=== PATIENT | female | born 1950 | race Caucasian/White ===

== ENCOUNTER 2023-08-05 11:30 | Outpatient (RCR) | payer MEDICARE, BC, SELFPAY ==
--- NOTE | 2023-07-01 14:08 | HP.PTEVAL_ITS ---
Patient's Visit Information Visit Information Visit Information: SHANNON GOLDBERG is a 73 year old F referred to Physical Therapy by Dr. Denny Roger DO with a diagnosis of CERVICAL SPINE PAIN. Date of Evaluation: 07/01/23 Physical Therapist: Mariluz Yuen PT, Cert MDT Visit Plan Frequency: 2-3x /Week Duration: 4-6 Weeks Plan: Scapular Strengthening and B Pec/UT/Levator/Scalene Stretching to help reduce stress on Cervical Spine with Daily Activities. US at 1.3 W/CM2 100% to R Neck Musculature in Sitting. Moist Heat to Neck as needed. Instruction in Proper Posture Control, Ergonomics with ADL's and Appropriate Activity Modifications. HEP Instructions. Subjective Subjective: Work/Leisure: RETIRED. LIVES WITH IN 2 STORY HOME. Present symptoms: R NECK PAIN. INTERMITTENT SHARP NECK PAINS. CRACKING IN NECK. (INTERMITTENT EMANUEL HAND NUMBNESS AND TINGLING INTERMITTLY FOR YEARS SOMETIMES AT NIGHT OR IF SHE HAS HER HAND UP BY HER FACE - GOES AWAY WHEN SHE MOVES). Present since: APR 2023 Pain Scale: Worst - 4/10 Least - 0/10 Currently: 0/10 Commenced as a result of: NO APPARENT REASON - I JUST GOT A STIFF NECK THEN IT STARTED GETTING SORE. Worse: LOOKING TO THE RIGHT AND DOWN. SITTING AND WORKING ON [employer]LE LAST NIGHT GOT SHARP PAINS ABOUT 4 TIMES IN R NECK. LIFTING WITH R ARM. STIFF IN THE MORNINGS. Better: TYLONOL. Disturbed sleep: NO Previous history/Previous treatment: UNREMARKABLE. This episode: MUSCLE RELAXER - DONE TAKING THEM NOW AND NECK PAIN IS ABOUT THE SAME. VOLTAREN GEL - WITH SOME BENEFIT. Dizziness: NO Tinnitus: NO - TICKING IN L EAR FOR ABOUT A WEEK AND DR. ROGER IS AWARE. ALSO HAD WAX IN R EAR AND COULDN'T GET IT ALL OUT. REFERRAL TO ENT - PENDING SEP 20 2022. Nausea: NO Shortness of Breath: CHRONIC Difficulty Swollowing: NO Gait: NORMAL FOR PATIENT BUT PATIENT REPORTS KNEE AND BALANCE PROBLEMS. DENIES ANY RECENT FALLS. 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 MODERATELY SEVERE DDD AT MULTIPLE LEVELS. PMH/Recent major surgery: ANXIETY AND DEPRESSION, CEREBRAL ANEURYSM REPAIR, HIATAL HERNIA, HTN, HIGH CHOLESTEROL, EMANUEL KNEE OA, VENOUS INSUFFICIENCY EMANUEL LE'S, LUMBAR SPINAL STENOSIS. Objective Objective: Sitting Posture/Standing Posture: INCREASED KYPHOSIS. FORWARD HEAD. ROUNDED SHOULDERS. NO TORTICOLLIS. Active Correction of posture: NE Other Observations: INDEP GAIT AND TRANSFERS. Sensory deficit: EMANUEL UE LIGHT TOUCH SENSATION GROSSLY INTACT AND SYMMETRICAL ROM deficit: EMANUEL UE'S WFL Motor deficit: EMANUEL UE STRENGTH GROSSLY 5/5 WITH MMT'ING EXCEPT SHLD'S 4-/5. PATIENT DENIES NECK AND SHLD PAIN WITH TESTING. 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 Reflexes: EMANUEL UE DTR'S 2/3 Dural Signs: NEGATIVE EMANUEL UE'S. Cervical Mvmt Loss: Flex: NIL Pro: NIL Ext: MOD Ret: JUHI RSB: MOD TO JUHI LSB: MIN TO MOD R Rot: MOD L Rot: MIN PATIENT C/O INCREASED R NECK PAIN WITH CERVICAL ROM TESTING INTO FLEX, R SB AND R ROT. SHE JUST REPORTS FEELING A STRETCH BUT NOT PAIN ON THE R SIDE OF HER NECK WITH L SB AND ROT TESTING. Postural strength: POOR Palpation: TENDERNESS WITH PALPATION OF R LATERAL NECK MUSCULATURE. PATIENT DENIES TENDERNESS WITH PALPATION OF UPPER THORACIC AND CERIVCAL SPINE. SHE IS A LITTLE TENDER OVER THE OCCIPUT LATERALLY ON THE RIGHT. OTHER: PATIENT REPORTS RECENT CHANGE IN BLOOD PRESSURE MEDICINE BECAUSE IT WAS HIGH. SHE REPORTS SHE HAS BEEN FEELING BETTER SINCE THE CHANGE AND ASKED TO HAVE IT TESTED TODAY. BP 136/75 TODAY IN CLINIC. TREATMENT: NEUROMUSCULAR REEDUCATION - RETRAINING OF MVMT AND POSTURE FOR SITTING, LYING AND STANDING ACTIVITIES. Balance/Special Test Scores Oswestry Neck Score: 6 Goals Goal 1:: DECREASE C/O NECK PAIN WITH ADL'S BY 50% Goal Time Frame: 4-6 Weeks Goal 2:: PATIENT WILL DEMONSTRATE NECK ROM WFL ALL PLANES WITH C/O MILD TO NO PAIN. Goal Time Frame: 4-6 Weeks Goal 3:: INCREASE EMANUEL SHLD STRENGTH TO 4/5 OR GREATER WITH MMT'ING TO EASE ADL'S. Goal Time Frame: 4-6 Weeks Goal 4:: PATIENT WILL BE INDEP WITH A HEP FOR CONTINUED IMPROVEMENT ONCE FORMAL PHYSICAL THERAPY CONCLUDES. Goal Time Frame: 4-6 Weeks Rehabilitation Potential Physical Therapy Diagnosis: R NECK PAIN. POSTURAL WEAKNESS. NECK STIFFNESS. Rehabilitation Potential: Good Anticipated Interventions Patient/Client Instruction: Educate patient on: Condition, Plan of Care and Risk Factors For the Purpose of:: To improve self management Therapeutic Exercise to Include: Strength training, Body mechanics, Postural training, Flexibilty training, Neuromotor development and Scapular Strength/Stabilization For the Purpose of:: To decrease pain, To increase ROM, To improve muscle pe rformance and motor function, To increase tolerance to activity/condition/position and To improve ability of physical actions for home/community/work/leisure Manual Therapy Techniques to Include: Soft tissue mobilization For the Purpose of:: To decrease pain, To improve nutrient delivery to tissue and To decrease soft tissue restriction Thermo therapy (hot pack): Yes Ultrasound (thermal/non thermal): Yes For the Purpose of:: To decrease pain and To improve nutrient delivery to tissue Text: Thank you for the opportunity to evaluate your patient. For Medicare and Medicare HMO plans, please review the plan of care and approve it. It will need to be FAXED BACK to us at [phone] for Medicare purposes. For Medicare only, by signing this I certify the plan of care. Please let me know if there are questions or concerns regarding this plan of care. Physician Signature: Date:
--- NOTE | 2023-08-05 11:58 | HP.PTDCSUM ---
Discharge Summary D/C summary: It has been my pleasure to treat SHANNON GOLDBERG referred by Dr. Denny Roger DO, with the diagnosis of CERVICAL SPINE PAIN for a total of 9 visit(s). Discharge Date: 08/05/23 Please see the following information for a summary of their discharge status. Subjective Subjective: PATIENT REPORTS HER PAIN IS ALMOST GONE. SHE REPORTS COMPLIANCE WITH HER HEP BUT CHUCKLES WHEN SHE SAYS SHE HAS TROUBLE DOING THE CHICKEN ONE. Pain R NECK: Pain Intensity (Out of 10): 0 Overall Improvement % Improvement: 90 Objective Objective/Function: PATIENT HAS RESPONDED REALLY WELL TO PT AND IS INDEP WITH A HEP. SHE IS APPROPRIATE FOR AND AGREEABLE TO DISCHARGE. ALL GOALS HAVE BEEN MET. Goals Goal 1:: DECREASE C/O NECK PAIN WITH ADL'S BY 50% Goal Progress: Goal Met Goal 2:: PATIENT WILL DEMONSTRATE NECK ROM WFL ALL PLANES WITH C/O MILD TO NO PAIN. Goal Progress: Goal Met Goal 3:: INCREASE EMANUEL SHLD STRENGTH TO 4/5 OR GREATER WITH MMT'ING TO EASE ADL'S. Goal Progress: Goal Met Goal 4:: PATIENT WILL BE INDEP WITH A HEP FOR CONTINUED IMPROVEMENT ONCE FORMAL PHYSICAL THERAPY CONCLUDES. Goal Progress: Goal Met Plan Plan: D/C. D/C Information d/c sentence: If there are questions or concerns regarding this patient's physical therapy, please feel free to call me at [phone]. Thank you for the referral of this patient. Sincerely, Mariluz Yuen, PT, Cert MDT Balance/Gait/Functional tests Balance/Special Test Scores Oswestry Neck Score: 1 Improvement % Improvement: 90
== END 2023-08-05 19:47 | disposition home or self-care (01) ==
LOC: PT 11:30
PROVIDERS: PCP Family Medicine; Referring Provider Family Medicine; Visit Provider Family Medicine
DX: M54.2 Cervicalgia (principal)
CPT/HCPCS: 97035; 97112; 97140; 97162; 97530

== ENCOUNTER 2024-02-16 18:05 | Observation (INO) | payer MEDICARE, BC, SELFPAY ==
[2024-02-16] VITALS (12 sets, daily range): BP systolic 115–201; BP diastolic 69–95; PULSE 72–88; RESP 16–18; TEMP 36.7–36.9; O2SAT 93–100; BMI 37.9
--- NOTE | 2024-02-16 18:23 | ED.VIS.GI ---
HPI HPI - GI History of Present Illness Chief Complaint: Abd Pain Informant: patient Abdominal Pain/Flank Pain Onset: Today Context: Gradual Onset Timing: Continuous Quality: Stabbing Location: Epigastric, RUQ, LUQ and RLQ Worsened by: Movement (Walking) Relieved by: Nothing Nausea/Vomiting/Emesis GI Symptom: Positive for Nausea; Negative for Vomiting Diarrhea/Melena/Hematochezia GI Symptom: Negative for Diarrhea, Melena or Hematochezia Associated Symptoms Associated Symptoms: Negative for Dysuria, Frequency or Hematuria Narrative Narrative: S[place] with upper abdominal pain that began today. Patient states it has gradually gotten worse throughout the day. Patient states it is constant. Patient describes it as stabbing. Patient states it is over the upper abdomen bilaterally and right lower abdomen. Patient admits to some nausea but denies any vomiting. Patient states the pain is worse with walking. Patient states nothing makes it better. Patient denies any diarrhea, melena, or hematochezia. Patient denies any dysuria, frequency, or hematuria. PFSH [facility] Medical History Hypertension Home Medications ?Medication ?Instructions ?Recorded ?Last Taken ?Type atorvastatin 20 mg tablet 20 mg PO DAILY 06/14/17 Unknown History losartan 100 1 tab PO DAILY 06/14/17 Unknown History mg-hydrochlorothiazide 25 mg tablet metoprolol succinate 200 mg 200 mg PO QHS 06/14/17 Unknown History tablet,extended release 24 hr potassium chloride 10 mEq 10 meq PO QHS 06/14/17 Unknown History tablet,extended release(part/cryst) venlafaxine 100 mg tablet 100 mg PO DAILY 06/14/17 Unknown History allopurinol 300 mg tablet mg PO 02/16/24 Unknown History ezetimibe 10 mg tablet 10 mg PO DAILY 02/16/24 Unknown History furosemide 20 mg tablet 10 mg PO 02/16/24 Unknown History hydralazine 50 mg tablet 50 mg PO BID 02/16/24 Unknown History meloxicam 7.5 mg tablet 7.5 mg PO DAILY 02/16/24 Unknown History pantoprazole 40 mg tablet,delayed 40 mg PO DAILY 02/16/24 Unknown History release Allergy/AdvReac Type Severity Reaction Status Date / Time No Known Allergies Allergy Verified 02/16/24 18:06 Surgical History no surgical history no surgical history Social History Smoking Status: Never smoker ROS ROS ED Constitutional Constitutional ED: Reports chills and subjective; Denies fever(s) Eyes Eyes: Denies blurry vision or change in vision ENT ENT ED: Denies rhinorrhea or sore throat Cardiovascular Cardiovascular: Denies chest pain or palpitations Respiratory/Chest Respiratory/Chest: Denies cough or dyspnea Gastrointestinal Gastrointestinal: Reports abdominal pain and nausea; Denies diarrhea, melena or vomiting Genitourinary Genitourinary ED: Denies dysuria or hematuria Musculoskeletal Musculoskeletal: Denies back pain or neck pain Integumentary Denies abscess or rash Neurologic Neurologic: Denies headache(s) or weakness Allergic/Immunologic Allergic/Immunologic ED: Denies mouth swelling or urticaria EXAM Physical Exam Const Vital Signs: 02/16/24 18:06 02/16/24 18:24 02/16/24 20:13 Temperature 98.3 F Temperature Source Temporal Pulse Rate 88 79 83 Respiratory Rate 16 18 18 Blood Pressure 193/86 H 154/84 H 201/94 H Blood Pressure Mean 121 107 129 Pulse Ox 98 95 95 Oxygen Delivery Method Room Air Room Air Room Air 02/16/24 20:31 02/16/24 22:04 02/16/24 22:09 Temperature Temperature Source Pulse Rate 84 Respiratory Rate 18 Blood Pressure 195/82 H 191/95 H 191/95 H Blood Pressure Mean 119 127 127 Pulse Ox 100 Oxygen Delivery Method Room Air 02/16/24 22:20 02/16/24 23:03 Temperature 98.0 F 98.0 F Temperature Source Pulse Rate 85 85 Respiratory Rate 18 18 Blood Pressure 191/82 H 191/82 H Blood Pressure Mean 118 Pulse Ox 97 97 Oxygen Delivery Method Positive well nourished and well developed General Appearance ED: well developed and NAD HEENT Reports moist mucous membranes Neck supple and no JVD Resp normal respiratory effort and clear to auscultation bilaterally Cardio regular rate and regular rhythm GI non-distended Palpation: soft and tender epigastric, RLQ, LUQ and RUQ; Negative for guarding or rebound tenderness present Neuro CN's II-XII intact bilaterally, moves all extremities and no sensory deficits noted Sensorium / Orientation: alert Motor Exam: strength 5/5 throughout Psych mental status grossly normal and thought process normal MDM MDM MDM Narrative Medical decision making narrative: Differential diagnosis includes pancreatitis, cholecystitis, cholelithiasis, peptic ulcer disease, duodenal ulcer, appendicitis, urinary tract infection, pyelonephritis, gastroenteritis, and viral illness. CBC will be obtained to assess for leukocytosis and anemia. Comprehensive metabolic profile will be obtained to assess for hepatic function, renal function, and electrolyte abnormality. Lipase will be obtained to assess for pancreatitis. Urinalysis will be obtained to assess for urinary tract infection and hematuria. Lab Data Attestation: I reviewed the patient's lab results. Lab results narrative: CBC was reviewed. There is a mild leukocytosis of 11.8. There is a mild anemia with a hemoglobin of 11.4. Platelets are normal. Comprehensive metabolic profile was reviewed. BUN was 25 and creatinine was slightly elevated at 1.74. There are no prior results for comparison. Lipase was reviewed and was normal at 21. Urinalysis was reviewed. There is no evidence of urinary tract infection or hematuria. Labs: Laboratory Results - last 24 hr 02/16/24 02/16/24 18:46 20:05 WBC 11.8 H RBC 3.67 L Hgb 11.4 L Hct 37.2 MCV 101.4 H MCH 31.1 MCHC 30.6 L RDW Std Deviation 54.0 H RDW Coeff of Giuliano 14.4 Plt Count 218 MPV 9.6 Immature Gran % (Auto) 0.300 Neut % (Auto) 77.7 H Lymph % (Auto) 13.3 L [place] % (Auto) 7.0 Eos % (Auto) 1.4 Baso % (Auto) 0.3 Absolute Neuts (auto) 9.2 H Absolute Lymphs (auto) 1.57 Nucleated RBC % 0 Sodium 140 Potassium 3.7 Chloride 105 Carbon Dioxide 27.0 Anion Gap 8 BUN 25 H Creatinine 1.74 H Estim Creat Clear Calc 29.60 Est GFR (MDRD) Af Amer 37 L Est GFR (MDRD) Non-Af 30 L BUN/Creatinine Ratio 14.4 Glucose 128 H Calcium 9.1 Total Bilirubin 0.70 AST 21 ALT 23 Alkaline Phosphatase 89 Total Protein 7.2 Albumin 3.6 Globulin 3.6 Albumin/Globulin Ratio 1.0 Lipase 21 Urine Color Yellow Urine Clarity Clear Urine pH 6.0 Ur Specific [place] 1.010 Urine Protein Negative Urine Glucose (UA) 1000 H Urine Ketones Negative Urine Occult Blood Negative Urine Nitrite Negative Urine Bilirubin Negative Urine Urobilinogen Normal Ur Leukocyte Esterase Negative Urine RBC 0 SEEN Urine WBC 0 SEEN Ur Squamous Epith Cells 0-5 SEEN Urine Bacteria 0 SEEN Urine Mucus 0 SEEN Radiography Diagnostic Testing: Clinical Impression(s) from Imaging Studies Abdomen/Pelvis CT 02/16/24 18:30 IMPRESSION: Diverticulosis of the colon. Early appendicitis is suspected in the proper clinical settings Hiatal hernia. Electronically Signed: Omari Mcallister DO at 21:03 EDT Reading Location ID and State: [facility] / [place] Tel [phone], Service support , CT scan of the abdomen pelvis was obtained. There is early appendicitis. There is diverticulosis but no evidence of diverticulitis. There is a hiatal hernia noted. This was interpreted by the radiologist and was also dependently reviewed by myself. EKG Initial EKG: Attestation: I personally reviewed and interpreted this EKG as follows: Interpretation: Sinus Rhythm (78) and No Acute Injury Pattern Comments: EKG was obtained. On my independent interpretation, it showed a normal sinus rhythm with a rate of 78. NH interval, QRS interval, and QTc intervals were all normal. Pooler was normal. There are no acute ST or T wave changes. 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 Patient was advised of her findings. On reevaluation, patient had more tenderness in the right lower abdomen just superior to McBurney's point. There is pain with movement of her right lower extremity. Patient was given a dose of Zosyn here. Case was discussed with Dr. Cooper from general surgery. He was in to evaluate the patient. He will take the patient to the operating room. Patient and family understood and were agreeable with the plan. All questions were answered. Discharge Plan Dx/Rx/DC Orders Clinical Impression: Acute appendicitis, Hypertension, Nausea Disposition Disposition: Acute Care [facility] Discharge Date/Time: 02/16/24 22:22
--- NOTE | 2024-02-16 18:30 | CT_ITS ---
STUDY: CT ABDOMEN AND PELVIS WITH CONTRAST REASON FOR EXAM: Female, 73 years old. Abdominal pain -- IV PO Contrast RADIATION DOSAGE (If Supplied By Facility): CTDIvol = ( 16.38 ) mGy, DLP = ( 1068.97 ) mGycm TECHNIQUE: Transaxial images were obtained from the dome of the diaphragm to the symphysis pubis without oral contrast. Oral and amp; IV Gastrografin and amp; 100mL Isovue-300 was administered. Sagittal and coronal images were reconstructed. Individualized dose optimization techniques were used for this CT. COMPARISON: None. FINDINGS: The visualized lung bases are unremarkable. The visualized portions of the heart are within normal limits. Normal liver. Normal gallbladder and extrahepatic biliary system. Normal spleen. Normal pancreas. Normal bilateral adrenal glands. Normal right kidney. Normal left kidney. Small hiatal hernia. Normal small intestine. Diverticulosis of the colon. The appendix is fluid distended with an appendicolith. Mild adjacent mesenteric stranding. Early appendicitis is suspected in the proper clinical settings. Normal abdominal aorta. Normal inferior vena cava. Normal retroperitoneum. Normal urinary bladder. Normal abdominal wall. Normal osseous structures. CT/Abdomen/Pelvis WITH Contrast IMPRESSION: Diverticulosis of the colon. Early appendicitis is suspected in the proper clinical settings Hiatal hernia. Electronically Signed: Omari Mcallister DO at 21:03 EDT Reading Location ID and State: [facility] / [place] Tel [phone], Service support ,
--- NOTE | 2024-02-16 18:31 | EKG12_ITS ---
Test Reason : DYSRHYTHMIA Blood Pressure : / mmHG Vent. Rate : 078 BPM Atrial Rate : 078 BPM P-R Int : 168 ms QRS Dur : 074 ms QT Int : 368 ms P-R-T Axes : 032 020 037 degrees QTc Int : 419 ms Normal sinus rhythm Normal ECG Confirmed by Kel Guerra ([id number]), editor greeting card PRIMO TOLENTINO ([id number]) on 02/20/2024 9:00:57 AM Referred By: Confirmed By:Kel Guerra
[2024-02-16] MEDS: 0.9% Normal Saline (1000mL) 1,000 ML 999 ML IV (18:46)
[2024-02-16] MEDS: Ondansetron 4 MG/2 ML Vial IV (18:47)
[2024-02-16] MEDS: Morphine 4 MG/ML Syringe IV (18:47)
[2024-02-16 19:01] LABS: Absolute Lymphocyte Count 1.57 X10^3/uL (0.83-4.51); Absolute Neutrophil Count 9.2 X10^3/uL (2.0-7.7); Basophil# 0.03 X10^3/uL; Basophil% 0.3 % (0-1); Eosinophil# 0.16 X10^3/uL; Eosinophils% 1.4 % (0-5); Hematocrit 37.2 % (37-47); Hemoglobin 11.4 g/dL (12.0-15.0); Lymphocyte # 1.57 X10^3/ul (0.83-4.51); Lymphocyte % 13.3 % (19-41); Mean Corp Hgb Conc 30.6 g/dL (32-36); Mean Corpuscular Hgb 31.1 pg (27.0-32.0); Mean Corpuscular Volume 101.4 fL (81-99); Mean Platelet Vol. 9.6 fl (6.2-12.0); Monocyte# 0.82 X10^3/uL; NRBC Flagged by Analyzer 0 % (0-5); Neutrophil # 9.15 X10^3/uL (2.7-7.7); Neutrophil % 77.7 % (47-70); Platelet Count 218 K/mm3 (150-450); RBC Distribution Width CV 14.4 % (11.6-14.6); Red Blood Count 3.67 M/mm3 (4.2-5.4); White Blood Count 11.8 K/mm3 (4.4-11.0)
[2024-02-16 19:10] LABS: AST(SGOT) 21 U/L (15-37); Alanine Aminotransfer ALT/SGPT 23 U/L (13-56); Albumin, Serum 3.6 g/dL (3.2-5.0); Alkaline Phosphatase 89 U/L (45-117); Anion Gap 8 (5-15); BUN 25 mg/dL (7-18); BUN/Creat Ratio 14.4 RATIO (10-20); Calcium,Total 9.1 mg/dL (8.5-10.1); Chloride 105 mmol/L (98-107); Creatinine, Serum 1.74 mg/dL (0.55-1.02); EST Glomerular Filtration Rate 30 mL/min (>60); Est Glom Filt Rate - Afr Amer 37 mL/min (>60); Globulin 3.6 g/dL (2.2-4.2); Glucose 128 mg/dL (74-106); Lipase 21 U/L (13-75); Potassium 3.7 mmol/L (3.5-5.1); Protein, Total 7.2 g/dL (6.4-8.2); Sodium Level 140 mmol/L (136-145)
[2024-02-16 20:15] LABS: Bacteria 0 SEEN /hpf (None Seen); Mucous, Urine 0 SEEN /hpf (<or=2+); Red Blood Cells-Urine 0 SEEN /hpf (0-5); White Blood Cells 0 SEEN /hpf (0-5)
[2024-02-16 20:30] LABS: Color, Urine Yellow (Yellow); Glucose, Dipstick 1000 mg/dl (Normal); Ketone-Dipstick Negative (Negative); Leukocyte Esterase-Dipstick Negative /ul (Negative); Nitrite-Dipstick Negative (Negative); Occult Blood-Urine Negative /ul (Negative); Protein-Dipstick Negative (Negative); Urine Bilirubin Dipstick Negative (Negative); Urine Clarity Clear (Clear); Urine Urobilinogen Normal (Normal)
[2024-02-16 20:36] LABS: Squamous Epithelial Cells - UA 0-5 SEEN /hpf (5-10)
--- NOTE | 2024-02-16 22:09 | HP.PCM.SX_ITS ---
HPI - General HPI Narrative SHANNON GOLDBERG, is a 73 F who presents with abdominal pain. The patient says she felt like she was having indigestion yesterday. Today the pain moved to the right lower quadrant. She has nausea but no vomiting. Denies fevers or chills. [facility] Medical History (Updated 02/16/24 @ 22:[address] Huber Cooper MD) Hypertension Home Medications ?Medication ?Instructions ?Recorded ?Last Taken ?Type atorvastatin 20 mg tablet 20 mg PO DAILY 06/14/17 Unknown History losartan 100 1 tab PO DAILY 06/14/17 Unknown History mg-hydrochlorothiazide 25 mg tablet metoprolol succinate 200 mg 200 mg PO QHS 06/14/17 Unknown History tablet,extended release 24 hr potassium chloride 10 mEq 10 meq PO QHS 06/14/17 Unknown History tablet,extended release(part/cryst) venlafaxine 100 mg tablet 100 mg PO DAILY 06/14/17 Unknown History Allergy/AdvReac Type Severity Reaction Status Date / Time No Known Allergies Allergy Verified 02/16/24 18:06 Surgical History no surgical history Social History Smoking Status: Never smoker ROS Constitutional Constitutional: Denies anorexia, chills, fatigue or fever(s) Eyes Eyes: Denies blurry vision ENT HEENT: Denies abnormal hearing Cardiovascular Cardiovascular: Denies chest pain Respiratory/Chest Respiratory/Chest: Denies cough or dyspnea Gastrointestinal Gastrointestinal: Reports abdominal pain and nausea; Denies coffee ground emesis or vomiting Genitourinary Genitourinary: Denies difficulty urinating Musculoskeletal Musculoskeletal: Denies abnormal gait Integumentary Integumentary: Denies jaundice or new lesions Neurologic Neurologic: Denies abnormal gait Psychiatric Psychiatric: Denies anxiety Endocrine Endocrinology: Denies heat intolerance Vital Signs Vital Signs Vital Signs: 02/16/24 18:06 02/16/24 18:24 02/16/24 20:13 Temperature 98.3 F Temperature Source Temporal Pulse Rate 88 79 83 Respiratory Rate 16 18 18 Blood Pressure 193/86 H 154/84 H 201/94 H Blood Pressure Mean 121 107 129 Pulse Ox 98 95 95 Oxygen Delivery Method Room Air Room Air Room Air 02/16/24 20:31 02/16/24 22:04 Temperature Temperature Source Pulse Rate 84 Respiratory Rate 18 Blood Pressure 195/82 H 191/95 H Blood Pressure Mean 119 127 Pulse Ox 100 Oxygen Delivery Method Room Air Weight Weight: 200 lb 13.458 oz Body Mass Index (BMI) 37.9 Physical Exam Const oriented x3 and no apparent distress Resp normal respiratory effort Cardio regular rate and regular rhythm GI soft to palpation Palpation: tender RLQ Results Lab / Micro Data 02/16/24 18:46 02/16/24 18:46 Labs: Laboratory Results - last 24 hr 02/16/24 18:46: WBC 11.8 H, RBC 3.67 L, Hgb 11.4 L, Hct 37.2, MCV 101.4 H, MCH 31.1, MCHC 30.6 L, RDW Std Deviation 54.0 H, RDW Coeff of Giuliano 14.4, Plt Count 218, MPV 9.6, Immature Gran % (Auto) 0.300, Neut % (Auto) 77.7 H, Lymph % (Auto) 13.3 L, [place] % (Auto) 7.0, Eos % (Auto) 1.4, Baso % (Auto) 0.3, Absolute Neuts (auto) 9.2 H, Absolute Lymphs (auto) 1.57, Nucleated RBC % 0, Sodium 140, Potassium 3.7, Chloride 105, Carbon Dioxide 27.0, Anion Gap 8, BUN 25 H, C reatinine 1.74 H, Estim Creat Clear Calc 29.60, Est GFR (MDRD) Af Amer 37 L, Est GFR (MDRD) Non-Af 30 L, BUN/Creatinine Ratio 14.4, Glucose 128 H, Calcium 9.1, Total Bilirubin 0.70, AST 21, ALT 23, Alkaline Phosphatase 89, Total Protein 7.2, Albumin 3.6, Globulin 3.6, Albumin/Globulin Ratio 1.0, Lipase 21 02/16/24 20:05: Urine Color Yellow, Urine Clarity Clear, Urine pH 6.0, Ur Specific [place] 1.010, Urine Protein Negative, Urine Glucose (UA) 1000 H, Urine Ketones Negative, Urine Occult Blood Negative, Urine Nitrite Negative, Urine Bilirubin Negative, Urine Urobilinogen Normal, Ur Leukocyte Esterase Negative, Urine RBC 0 SEEN, Urine WBC 0 SEEN, Ur Squamous Epith Cells 0-5 SEEN, Urine Bacteria 0 SEEN, Urine Mucus 0 SEEN Imaging Radiology Impression Abdomen/Pelvis CT 02/16/24 18:30 IMPRESSION: Diverticulosis of the colon. Early appendicitis is suspected in the proper clinical settings Hiatal hernia. Electronically Signed: Omari Mcallister DO at 21:03 EDT Reading Location ID and State: [facility] / [place] Tel [phone], Service support , Assessment & Plan Assessment/Plan (1) Acute appendicitis: QUALIFIERS: Acute appendicitis type: unspecified acute appendicitis type Qualified Code(s): K35.80 - Unspecified acute appendicitis PLAN: The patient has acute appendicitis on CT scan. Her white count is elevated and her pain is in her right lower quadrant. I discussed laparoscopic appendectomy with the patient in detail. I discussed the risks including but Awender to bleeding, infection, injury other organs such as the bowel or bladder or ureter. Patient understands all the risks and is willing to proceed. She was given antibiotics in the emergency room. Huber Cooper MD Pager: [facility] [address] [place] [address], [address] [place] [address] Office:
--- NOTE | 2024-02-16 22:09 | EKG12_ITS ---
Test Reason : PRE-OP Blood Pressure : / mmHG Vent. Rate : 082 BPM Atrial Rate : 082 BPM P-R Int : 178 ms QRS Dur : 086 ms QT Int : 368 ms P-R-T Axes : 058 042 031 degrees QTc Int : 429 ms Sinus rhythm with occasional Premature ventricular complexes Otherwise normal ECG When compared with ECG of 16-FEB-2024 18:38, MANUAL COMPARISON REQUIRED, DATA IS UNCONFIRMED Confirmed by Kel Guerra ([id number]), metropolitan editor SANA QUIROZ ([id number]) on 02/21/2024 6:10:29 AM Referred By: DR AGUILAR Confirmed By:Kel Guerra
[2024-02-16] MEDS: Piperacil/Tazobactam 4.5 GM in 0.9% Normal Saline (100mL MB+) 100 ML IV (22:21)
--- NOTE | 2024-02-16 23:03 | PRE.ANES_ITS ---
ASA Classification* ASA Classification ASA Classification: 3 and E Assessment & Plan Anesthesia* Anesthesia Assessment Anesthesia Assessment: Discussed sedation and/or anesthesia options, risks, benefits, and alternatives with patient/parents/legal guardian/POA. Questions invited. The patient/parents/legal guardian/POA seems to understand and agrees to proceed with anesthesia plan. Reviewed the physical assessment, medical history, allergy history and patient home medications list prior to surgery/procedure/anesthetic and documented any changes. Performed airway and anesthesia risk assessments. 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 When Was Last Pacemaker Check QUESTION #4 FULL TEXT: You/Your Family Experience fever (hyperthermia) with Anesthesia Last Oral Intake Last Oral intake: Last Oral Intake NPO since 16:00 02/16/24 22:09 Meds taken in AM with sips of water? 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 mixer operator: PONV - cocoa powder mixer operator Female HX of Motion Sickness HX of N/V After Surgery Non-Smoker Duration of Surgery greater than 60 minutes Number of Risk Factors PONV Score Height & Weight Height & Weight: Anesthesia: Height & Weight Height 5 ft 1 in 02/16/24 22:09 Weight: 91.1 kg 02/16/24 22:09 Body Mass Index (BMI) 37.9 02/16/24 22:09 Respiratory Assessment Respiratory Assessment - cocoa powder mixer operator: Respiratory Tract Infection Hx - cocoa powder mixer operator Hx Respiratory Tract Infection No 02/16/24 22:09 STOP Sleep Apnea STOP Sleep Apnea - cocoa powder mixer operator: STOP Sleep Apnea - cocoa powder mixer operator Hx Hypertension Yes 02/16/24 22:09 Hx Sleep Apnea No 02/16/24 22:09 CPAP BIPAP Do you snore loudly (louder No 02/16/24 22:09 than talking or can be heard Do you often feel tired/ No 02/16/24 22:09 fatigued/ sleepy during daytime? Has anyone observed you stop No 02/16/24 22:09 breathing during sleep? STOP Results Negative 02/16/24 22:09 QUESTION #5 FULL TEXT : Do you snore loudly (louder than talking or can be heard through closed doors)? 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 Specify any problems Hx of Preganancy in last 3 Months Nurse Filling Out Transfusion & Questions: Date: Time: Patient unable to answer at this time (ie. confused, unrespo /Reproduction History /Reproductive History - cocoa powder mixer operator: /Reproductive Hx- cocoa powder mixer operator Hx Now No 02/16/24 22:09 Gestational Age (in weeks): EDC: Hx Hx Para Hx Section SAB No 02/16/24 22:09 Anesthesia Focused Assessment* Temperature: 98.0 F Pulse Rate: 85 Blood Pressure: 191/82 Respiratory Rate: 18 Pulse Ox: 97 Airway Assessment Mouth opens: >3 cm Mallampati Score: II Focused Labs Anesthesia Preop lab: CBC WBC 11.8 K/mm3 (4.4-11.0) H 02/16/24 18:46 RBC 3.67 M/mm3 (4.2-5.4) L 02/16/24 18:46 Hgb 11.4 g/dL (12.0-15.0) L 02/16/24 18:46 Hct 37.2 % (37-47) 02/16/24 18:46 Plt Count 218 K/mm3 (150-450) 02/16/24 18:46 CHEMISTRY Potassium 3.7 mmol/L (3.5-5.1) 02/16/24 18:46 Sodium 140 mmol/L (136-145) 02/16/24 18:46 BUN 25 mg/dL (7-18) H 02/16/24 18:46 Creatinine 1.74 mg/dL (0.55-1.02) H 02/16/24 18:46 Glucose 128 mg/dL (74-106) H 02/16/24 18:46 COAG Review of Systems (Anesthesia) ROS Narrative System reviewed and no additional complaints, except as documented. [facility] Medical History Hypertension Home Medications ?Medication ?Instructions ?Recorded ?Last Taken ?Type atorvastatin 20 mg tablet 80 mg PO DAILY 06/14/17 Unknown History losartan 100 1 tab PO DAILY 06/14/17 Unknown History mg-hydrochlorothiazide 25 mg tablet metoprolol succinate 200 mg 200 mg PO QHS 06/14/17 Unknown History tablet,extended release 24 hr potassium chloride 10 mEq 10 meq PO QHS 06/14/17 Unknown History tablet,extended release(part/cryst) venlafaxine 100 mg tablet 100 mg PO DAILY 06/14/17 Unknown History allopurinol 300 mg tablet mg PO 02/16/24 Unknown History ezetimibe 10 mg tablet 10 mg PO DAILY 02/16/24 Unknown History furosemide 20 mg tablet 10 mg PO 02/16/24 Unknown History hydralazine 50 mg tablet 50 mg PO BID 02/16/24 Unknown History meloxicam 7.5 mg tablet 7.5 mg PO DAILY 02/16/24 Unknown History pantoprazole 40 mg tablet,delayed 40 mg PO DAILY 02/16/24 Unknown History release Allergy/AdvReac Type Severity Reaction Status Date / Time No Known Allergies Allergy Verified 02/16/24 18:06 Surgical History no surgical history Social History Smoking Status: Never smoker
--- NOTE | 2024-02-16 23:20 | APP_PTH ---
PATIENT: SHANNON GOLDBERG LOC: MS3 U#:[id number] AGE/SX: 73/F ROOM: [facility]313 RE02/16/[address]: Dr. Huber Cooper MD : 1950 BED: 1 DIS: 02/17/2024 SPEC #: [id number] RECD: 02/17/24 08:09 STATUS: DONN REJeff #: [id number] HOME: 02/16/24 23:[address]: Huber Cooper DEPT: SURGICAL PATHOLOGY RECD BY: Nishi Maldonado ENTERED: 02/17/24 10:47 SP TYPE: APPENDIX OTHR DR: Dr. Denny Roger DO Tissues: Appendix, NOS Procedures: Surgery Specimen Level III HEADER OPERATION: Laparoscopic, appendectomy PRE-OP DIAGNOSIS: Acute appendicitis TISSUE SUBMITTED: Appendix MICROSCOPIC DIAGNOSIS Appendix, appendectomy: Acute appendicitis and periappendicitis. EDNA/ 02/20/2024 MICROSCOPIC DESCRIPTION Slides are reviewed. GROSS DESCRIPTION Received in fixative is one container labeled with the patient's name and designated appendix. The specimen consists of a variform appendix measuring 6.0 cm in length and 0.8 cm in average diameter. No gross perforations are evident. Serial sections reveal a patent lumen with fecal material. No mass lesion is identified. Tire Design Engineer sections are submitted in one cassette. / AM: 02/17/2024 TC:2 CPT: 16739
[2024-02-16] MEDS: Bupiv/Epi 0.25% 30 ML Vial (23:22)
--- NOTE | 2024-02-16 23:38 | OP.PCM_ITS ---
Report of Operation Date of Procedure: 02/16/24 Pre-Operative Diagnosis: Acute appendicitis Post-Operative Diagnosis: Same Surgery/Procedure Performed:: Laparoscopic appendectomy Type of Anesthesia: General/Regional Specimen's removed: Appendix Estimated Blood Loss (mL): 5 Description of Procedure: The patient was brought into the operating room and general anesthesia was induced. The left arm was tucked and the abdomen was prepped and draped in usual sterile fashion. A small midline incision was made superior to the umbilicus and deepened to the level of the fascia. The fascia was elevated and incised. The peritoneum was also elevated and incised. A finger sweep was performed and a balloon trocar was placed into the abdomen and inflated. The abdomen was insufflated to 15 mmHg and the camera was inserted and the abdomen was inspected for any injuries upon entering the abdomen. There were none. The patient was placed in Trendelenburg position and a 5 mm ports placed in the left lower quadrant and suprapubic areas under direct visualization. Next using atraumatic bowel graspers the appendix was identified. The appendix was grasped and elevated and Enseal was used to take down the mesoappendix. A stapler was used to come across the base of the appendix. The appendix was then placed in Endo Catch bag and removed through the umbilical incision. The staple line was inspected and found to be hemostatic and intact. The 2 5 mm ports are removed under direct visualization. The balloon trocar was deflated and removed and all the air was removed from the abdomen. The umbilical incision fascia was closed with an 0 Vicryl [id number] suture. The incisions were then irrigated with saline and dried. Local anesthetic was injected into the incision sites. The skin incisions were then closed with interrupted 4-0 Monocryl suture and Steri- Strips. Bandages were applied and the patient was awoken and taken to PACU in stable condition. Patient tolerated the procedure well. Admit VTE Documentation VTE Mechan Device Prophylaxis: SCD's
--- NOTE | 2024-02-16 23:51 | PCM.POSTANE2 ---
Anesthesia Postop Eval I Sum Anesthesia Postop Eval I Summary Anesthesia Postop Eval I Summary: Anesthesia Postop Eval I: Assessment Summary Airway patent Spontaneous unlabored respirations Mental status nausea Vomiting Anesthesia Postop Eval I: Fluid Summary Crystalloid volume administer (ml) Colloids volume administered ( ml) Blood Product volume administered (ml) Total IV fluid infused Anesthesia Postop Eval I: Summary Notes Anesthesia Complication Anesthesia Complication Comment: Post-operative progress note Anesthesia: Postop Eval II Evaluation Mental status: Awake Pain Level: 4 nausea: No Vomiting: No Complications Anesthesia Complication: No
--- NOTE | 2024-02-16 23:52 | PCM.POST.ANE ---
Anesthesia: Postop Eval I Current Vital Signs Temperature: 98.4 F Pulse Rate: 86 Blood Pressure: 121/77 Respiratory Rate: 17 Pulse Ox: 93 Oxygen Delivery Method: Nasal Cannula Oxygen Flow Rate (L/min): 3 Assessment Airway patent: Yes Spontaneous unlabored respirations: Yes Mental status: Awake nausea: No Vomiting: No Anesthesia Complication: No Fluid Hydration Crystalloid volume administer (ml): 500 Total IV fluid infused: 500 Progress Note Anesthesia document: Postop Eval 1 completed: Yes
[2024-02-17] VITALS (9 sets, daily range): BP systolic 122–177; BP diastolic 59–79; PULSE 62–92; RESP 16; TEMP 36.6–36.8; O2SAT 94–100; BMI 39.4
[2024-02-17] MEDS: 0.9% Normal Saline (1000mL) 1,000 ML 60 ML IV (00:25)
[2024-02-17] MEDS: hydrALAZINE 20 MG/ML Vial 10 MG IV (01:35)
[2024-02-17] MEDS: 0.9% Saline Lock 10 ML Syringe IV (01:35)
[2024-02-17] MEDS: oxyCODONE 5 MG Tablet PO (01:36)
--- NOTE | 2024-02-17 08:29 | PN.SURG_ITS ---
Subjective Subjective The patient is comfortable this morning. Objective Data Objective Data Vital Signs: Vital Signs Temp Pulse Resp BP Pulse Ox O2 Del Method O2 Flow Rate 98 F 74 16 122/59 H 98 Room Air 2 02/17/24 05:15 02/17/24 05:15 02/17/24 05:15 02/17/24 05:15 02/17/24 05:15 02/17/24 05:15 02/17/24 03:10 Oxygen Flow Rate (L/min) 2 Oxygen Delivery Method Room Air Weight: 208 lb 15.971 oz Body Mass Index (BMI) 39.4 Intake & Output: Intake and Output for Last 24 Hours 02/15/24 02/16/24 02/17/24 23:59 23:59 23:59 Intake Total 1100 / 1100 Balance 1100 / 1100 Lab / Micro Data 02/16/24 18:46 02/16/24 18:46 Labs: Laboratory Results - last 24 hr 02/16/24 18:46: WBC 11.8 H, RBC 3.67 L, Hgb 11.4 L, Hct 37.2, MCV 101.4 H, MCH 31.1, MCHC 30.6 L, RDW Std Deviation 54.0 H, RDW Coeff of Giuliano 14.4, Plt Count 218, MPV 9.6, Immature Gran % (Auto) 0.300, Neut % (Auto) 77.7 H, Lymph % (Auto) 13.3 L, [place] % (Auto) 7.0, Eos % (Auto) 1.4, Baso % (Auto) 0.3, Absolute Neuts (auto) 9.2 H, Absolute Lymphs (auto) 1.57, Nucleated RBC % 0, Sodium 140, Potassium 3.7, Chloride 105, Carbon Dioxide 27.0, Anion Gap 8, BUN 25 H, C reatinine 1.74 H, Estim Creat Clear Calc 29.60, Est GFR (MDRD) Af Amer 37 L, Est GFR (MDRD) Non-Af 30 L, BUN/Creatinine Ratio 14.4, Glucose 128 H, Calcium 9.1, Total Bilirubin 0.70, AST 21, ALT 23, Alkaline Phosphatase 89, Total Protein 7.2, Albumin 3.6, Globulin 3.6, Albumin/Globulin Ratio 1.0, Lipase 21 02/16/24 20:05: Urine Color Yellow, Urine Clarity Clear, Urine pH 6.0, Ur Specific [place] 1.010, Urine Protein Negative, Urine Glucose (UA) 1000 H, Urine Ketones Negative, Urine Occult Blood Negative, Urine Nitrite Negative, Urine Bilirubin Negative, Urine Urobilinogen Normal, Ur Leukocyte Esterase Negative, Urine RBC 0 SEEN, Urine WBC 0 SEEN, Ur Squamous Epith Cells 0-5 SEEN, Urine Bacteria 0 SEEN, Urine Mucus 0 SEEN Radiography Diagnostic Testing: Radiology Impression Abdomen/Pelvis CT 02/16/24 18:30 IMPRESSION: Diverticulosis of the colon. Early appendicitis is suspected in the proper clinical settings Hiatal hernia. Electronically Signed: Omari Mcallister DO at 21:03 EDT Reading Location ID and State: [facility] / [place] Tel [phone], Service support , Physical Exam Const oriented x3 and no apparent distress Resp normal respiratory effort Cardio regular rate and regular rhythm GI soft to palpation and non-tender Assessment & Plan Assessment/Plan (1) Acute appendicitis: QUALIFIERS: Acute appendicitis type: unspecified acute appendicitis type Qualified Code(s): K35.80 - Unspecified acute appendicitis PLAN: Patient doing well for laparoscopic appendectomy. I will discharge her home today after tolerating regular diet. Huber Cooper MD Pager: [facility] [address] [place] [address], [address] [place] [address] Office:
--- NOTE | 2024-02-17 08:31 | DCINST_ITS ---
Discharge Instructions Procedure Appendectomy Diet Discharge Diet: Light diet - advance as tolerated Activity Discharge Activity: May Not Drive (for 2-3 days or while taking narcotic pain medications.) May shower in (days): 1 Lifting Restrictions: 20 lbs for 2 weeks Dressing / Incision Call your doctor if your incision/area has: Continuous Slow Oozing, Sudden Increased Bleeding, Increased Pain/ Swelling, Increased Redness and Foul Smelling Discharge Call your doctor if you observe: Fever of 101 or Higher Suture Line Care: Avoid Pulling/Pushing and Avoid Pinching/Bending Remove Dressing in: 2 days Cleanse incision/area with: Soap & Water Additional Dressing/Incision Instructions:: Keep dressing clean and dry. Change or remove dressing in 2 days. Leave steri strips for 1 week. May protect with a gauze bandaid. Follow Up Care Please Follow Up With: Huber Cooper MD When: Please call to schedule 2 week follow up appointment. [phone] Test Results: Test results from this visit will be discussed in further detail at your follow- up appointment, if applicable. Discharge Plan Admission Admit Date/Time: 02/17/24 00:09 Attending Provider: Huber Cooper Primary Care Provider: Denny Roger Discharge Orders/Prescriptions Prescriptions: New acetaminophen 325 mg Tablet 650 mg PO Q4H PRN PRN (Reason: Pain 1-10 Or Fever) Qty: 0 0RF oxycodone 5 mg Tablet 5 - 10 mg PO Q4H PRN PRN (Reason: Pain Score 4-10) 5 Days Qty: 15 0RF Continued atorvastatin 20 MG tablet 80 mg PO DAILY metoprolol succinate 200 MG tablet 200 mg PO QHS Patient Comments: venlafaxine 100 MG tablet 100 mg PO DAILY Patient Comments: TAKE ONE TABLET BY MOUTH EVERY DAY losartan-hydrochlorothiazide 1 EACH tablet 1 tab PO DAILY Patient Comments: potassium chloride 10 MEQ tablet 10 meq PO QHS Patient Comments: allopurinol 300 mg tablet 300 mg PO DAILY hydralazine 50 mg tablet 50 mg PO BID furosemide 20 mg tablet 10 mg PO .daily am ezetimibe 10 mg tablet 10 mg PO DAILY meloxicam 7.5 mg tablet 7.5 mg PO DAILY pantoprazole 40 mg tablet,delayed release (DR/EC) 40 mg PO DAILY dapagliflozin propanediol [Farxiga] 5 mg tablet 5 mg PO DAILY losartan 100 mg tablet 100 mg PO DAILY Referrals / Follow Up: Denny Roger DO [Primary Care Provider] - Disposition Disposition (needs filled in before D/C Order can be placed): Home, Self Care
--- NOTE | 2024-02-17 09:40 | CASEMGMT ---
KATI CM into pt room, pt has discharge order in. Pt lying in bed using IS. Pt reports she is typically indep at home, does not use AD. Pt lives with and dtr and very close. Pt reports she has been up to the bathroom twice since surgery with the nurse and has pain in abdomen but feels she is safe to return home. Pt denies any homegoing needs at this time.
--- NOTE | 2024-02-17 09:58 | PHA.DC.MC.R ---
Pharmacy [facility] has performed discharge medication reconciliation and counseling for this patient. The patient's discharge medication list was reviewed for discrepancies and discrepancies were resolved. The patient was counseled on the following discharge medications and changes in medications for homegoing were reviewed. The Reason for Use, instructions for use, and potential side effects were reviewed for all new medications. The patient's questions regarding all of their medications were answered. 1. Acetaminophen 650 mg PO Q5H PRN pain 2. Oxycodone 5--10 mg Q4H PRN pain The patient was able to verbally demonstrate an understanding of their discharge medications. The patient was counselled on new medications by instructor adjunct pharmacy technician [place]. Medications at Discharge Home Medications atorvastatin 20 mg tablet 80 mg PO DAILY 06/14/17 losartan 100 mg-hydrochlorothiazide 25 mg tablet 1 tab PO DAILY 06/14/17 metoprolol succinate 200 mg tablet,extended release 24 hr 200 mg PO QHS 06/14/17 potassium chloride 10 mEq tablet,extended release(part/cryst) 10 meq PO QHS 06/14/17 venlafaxine 100 mg tablet 100 mg PO DAILY 06/14/17 allopurinol 300 mg tablet 300 mg PO DAILY 02/16/24 ezetimibe 10 mg tablet 10 mg PO DAILY 02/16/24 furosemide 20 mg tablet 10 mg PO .daily am 02/16/24 hydralazine 50 mg tablet 50 mg PO BID 02/16/24 meloxicam 7.5 mg tablet 7.5 mg PO DAILY 02/16/24 pantoprazole 40 mg tablet,delayed release 40 mg PO DAILY 02/16/24 acetaminophen 325 mg tablet 650 mg (2 x 325 mg) PO Q4H PRN PRN Pain 1-10 Or Fever #0 tabs 02/17/24 dapagliflozin propanediol 5 mg tablet (Farxiga) 5 mg PO DAILY 02/17/24 losartan 100 mg tablet 100 mg PO DAILY 02/17/24 oxycodone 5 mg tablet 5 - 10 mg (1 - 2 x 5 mg) PO Q4H PRN PRN Pain Score 4-10 5 days #15 tabs 02/17/24
[2024-02-17] MEDS: hydrALAZINE 50 MG Tablet PO (10:00)
[2024-02-17] MEDS: Pantoprazole Sodium 40 MG Tablet PO (10:01)
--- NOTE | 2024-02-17 12:22 | CHAPLAIN ---
Type of Pastoral Visit _x__ Initial Visit ___ Follow-up Visit ___ On-call Visit ___ General Patient Visit ___ Spiritual Assessment ___ Family Conference ___ Bereavement ___ Rapid Response ___ Code Blue ___ Other (describe below) Pastoral Care Referral From _x__ Patient ___ Family ___ Nurse ___ Physician ___ Jacker ___ Pie Filler ___ Other (describe below) Sacrament/Intervention _x__ Active listening ___ Anointing ___ Worship ___ Bereavement ___ Communion ___ Ann exploration ___ ___ Life review _x__ Prayer ___ Reconciliation ___ Sacrament of Sick ___ Supportive presence ___ Wedding ___ Other (describe below) Pastoral Comments patient reports on having surgery last night and feeling much better today with hopes of going home; family members are in the room; pt requests a prayer for her recovery
== END 2024-02-17 13:52 | disposition home or self-care (01) ==
LOC: ED 18:49 → SDC 22:06 → ACINP 22:07 → MS3 02-17 00:11 → SDC 02-20 13:52 → MS3 02-20 13:52
PROVIDERS: Admitting Provider Surgery; Emergency Provider Emergency Medicine; PCP Family Medicine; Visit Provider Surgery
PROC: 0DTJ4ZZ Resection of Appendix, Percutaneous Endoscopic Approach (ICD-10-PCS; CPT 44970; principal; 2024-02-16 23:00)
DX: K35.80 Unspecified acute appendicitis (principal); I10 Essential (primary) hypertension; Z79.899 Other long term (current) drug therapy
CPT/HCPCS: 44970; 00840; 74177; 80053; 81001; 83690; 85025; 88304; 93005; 94668; 96365; 96375; 99221; 99284; J7030; Q9967; A4216; C1760; G0378; J2405

== ENCOUNTER 2024-07-29 05:42 | Observation (INO) | payer MEDICARE, BC, SELFPAY ==
[2024-07-29] VITALS (14 sets, daily range): BP systolic 117–188; BP diastolic 53–96; PULSE 64–80; RESP 16–20; TEMP 36.7–37.2; O2SAT 92–98; BMI 39.1; BMI 37.5
--- NOTE | 2024-07-29 05:56 | EKG12_ITS ---
Test Reason : CP Blood Pressure : */* mmHG Vent. Rate : 76 BPM Atrial Rate : 76 BPM P-R Int : 178 ms QRS Dur : 80 ms QT Int : 380 ms P-R-T Axes : 53 42 50 degrees QTcB Int : 427 ms Sinus rhythm with occasional Premature ventricular complexes Otherwise normal ECG Confirmed by Kel Guerra ([id number]), city editor SANA QUIROZ ([id number]) on 07/30/2024 11:41:30 AM Referred By: BB Confirmed By: Kel Guerra
--- NOTE | 2024-07-29 05:57 | EDS_ITS ---
HPI History of Present Illness Chief Complaint: Chest Pain Informant: patient and family Narrative Narrative: 74-year-old female has been having proximately 30 hours or so of waxing and waning discomfort in her upper back feels like aching pressure, seems to be wo rse when she lie down at night and woke up with it worse in the morning, nonexertional nonpleuritic. No recent cough or URI symptoms, no dyspnea, nausea, vomiting, diaphoresis, arm discomfort but this morning she woke up couple hours ago with discomfort in her upper chest and neck and both shoulder areas, that felt like tightness. Therefore she went half mile away to her daughter's house and woke her up and she brought her here. No history of CAD or stents, patient states she was diagnosed with congestive heart failure remotely but it was due to fluid around the heart that was taking care of and she has not had any issues since. PE Risk Factors: Negative for Recent Travel/Surgery, Recent Immobilization, Prior DVT or PE, Cancer or OCP + Smoking + >/=35 PFSH [facility] Medical History Hypertension Home Medications ?Medication ?Instructions ?Recorded ?Last Taken ?Type atorvastatin 20 mg tablet 80 mg PO DAILY 06/14/17 Unknown History losartan 100 1 tab PO DAILY 06/14/17 Unknown History mg-hydrochlorothiazide 25 mg tablet metoprolol succinate 200 mg 200 mg PO QHS 06/14/17 Unknown History tablet,extended release 24 hr potassium chloride 10 mEq 10 meq PO QHS 06/14/17 Unknown History tablet,extended release(part/cryst) venlafaxine 100 mg tablet 100 mg PO DAILY 06/14/17 Unknown History allopurinol 300 mg tablet 300 mg PO DAILY 02/16/24 Unknown History ezetimibe 10 mg tablet 10 mg PO DAILY 02/16/24 Unknown History furosemide 20 mg tablet 10 mg PO .daily am 02/16/24 Unknown History hydralazine 50 mg tablet 50 mg PO BID 02/16/24 Unknown History meloxicam 7.5 mg tablet 7.5 mg PO DAILY 02/16/24 Unknown History pantoprazole 40 mg tablet,delayed 40 mg PO DAILY 02/16/24 Unknown History release acetaminophen 325 mg tablet 650 mg (2 x 325 mg) PO Q4H PRN PRN 02/17/24 Unknown Rx Pain 1-10 Or Fever #0 tabs dapagliflozin propanediol 5 mg 5 mg PO DAILY 02/17/24 Unknown History tablet (Farxiga) losartan 100 mg tablet 100 mg PO DAILY 02/17/24 Unknown History albuterol sulfate 90 mcg/actuation 2 puff inhalation Q4H PRN PRN 07/29/24 Unknown History aerosol inhaler wheezing fluticasone fur. 100 mcg-umeclid 1 ea inhalation DAILY 07/29/24 Unknown History 62.5 mcg-vilant 25 mcg inhalat.powder (Trelegy Ellipta) Allergy/AdvReac Type Severity Reaction Status Date / Time No Known Allergies Allergy Verified 07/29/24 05:43 Family History no significant family his Surgical History S/P appendectomy Social History Smoking Status: Never smoker ROS ROS ED Constitutional Constitutional ED: Denies chills or fever(s) Eyes Eyes: Denies change in vision or diplopia ENT ENT ED: Denies rhinorrhea or sore throat Cardiovascular Cardiovascular: Reports as per HPI, chest pain and radiating jaw, neck or arm pain; Denies palpitations Respiratory/Chest Respiratory/Chest: Denies cough or dyspnea Gastrointestinal Gastrointestinal: Denies abdominal pain, diarrhea, nausea or vomiting Genitourinary Genitourinary ED: Denies dysuria or hematuria Musculoskeletal Musculoskeletal: Reports back pain; Denies neck pain Integumentary Denies abscess or rash Neurologic Neurologic: Denies headache(s), paresthesias or weakness EXAM Physical Exam Const Vital Signs: 07/29/24 05:43 07/29/24 05:46 07/29/24 05:56 Temperature 98.7 F Temperature Source Oral Pulse Rate 76 Respiratory Rate 18 Respiratory Effort Normal Blood Pressure 188/87 H Blood Pressure Mean 120 Pulse Ox 95 Oxygen Delivery Method Room Air Room Air 07/29/24 06:55 07/29/24 06:59 Temperature 98.1 F Temperature Source Oral Pulse Rate 64 66 Respiratory Rate 16 Respiratory Effort Blood Pressure 171/80 H 169/79 H Blood Pressure Mean 109 Pulse Ox 94 Oxygen Delivery Method Room Air Positive well nourished and well developed General Appearance ED: well developed and NAD HEENT Reports moist mucous membranes normocephalic and atraumatic Eyes PERRL and EOMs intact bilaterally Neck full ROM and supple Resp normal respiratory effort and clear to auscultation bilaterally Cardio regular rate, regular rhythm and no murmurs Peripheral Pulses: radial pulses present bilateral 2+ GI non-tender and non-distended Auscultation: normoactive bowel sounds Palpation: soft Back/Spine no CVA tenderness General Back: other FROM Extremity normal to inspection General Extremety ED: Negative for edema, pulses abnormal or tenderness General Extremity: Negative for edema or pulses abnormal Neuro oriented x3, CN's II-XII intact bilaterally and no sensory deficits noted Sensorium / Orientation: awake and alert Motor Exam: strength 5/5 throughout Psych mental status grossly normal Skin no rashes or lesions noted and no wounds Heart Score History: Moderately Suspicious ECG: Normal Age: >/= 65 years Risk Factors: 1 or 2 Risk Factors Troponin: >1 - <3 Normal Limit Score: 5 MDM MDM MDM Narrative Medical decision making narrative: Differential includes esophageal etiologies, acute coronary syndrome, dissection. Symptoms are not consistent with pulmonary embolus and she has no tachycardia making that less likely. Given that her EKG is completely normal except for a single asymptomatic PVC, I am working her up for acute coronary syndrome with 2 sequential troponin measurements, in addition to giving her a GI cocktail to see if that helps in the meantime, as well as a dose of aspirin which she does not take regularly. The initial troponin returned elevated/abnormal at 90. This is nonspecific at this time, but increases the risk that this could be acute coronary syndrome. Inpatient disposition indicated for further evaluation. She states she feels a little bit better after the GI cocktail, unclear if she noticed a major difference or not but she still has discomfort in her right shoulder and going into her right arm. Nitroglycerin ordered/given. History & Record Review Discussion w/independent historian: Patient and Family Lab Data Attestation: I reviewed the patient's lab results. Labs: Laboratory Results - last 24 hr 07/29/24 06:00 WBC 10.6 RBC 3.76 L Hgb 12.1 Hct 38.4 MCV 102.1 H MCH 32.2 H MCHC 31.5 L RDW Std Deviation 54.6 H RDW Coeff of Giuliano 14.7 H Plt Count 189 MPV 9.4 Immature Gran % (Auto) 0.500 Neut % (Auto) 79.6 H Lymph % (Auto) 10.1 L Armstrong % (Auto) 6.9 Eos % (Auto) 2.5 Baso % (Auto) 0.4 Absolute Neuts (auto) 8.5 H Absolute Lymphs (auto) 1.07 Nucleated RBC % 0 Sodium 143 Potassium 4.0 Chloride 110 H Carbon Dioxide 27.0 Anion Gap 6 BUN 19 H Creatinine 1.21 H Estim Creat Clear Calc 42.65 Est GFR (MDRD) Af Amer 56 L Est GFR (MDRD) Non-Af 46 L BUN/Creatinine Ratio 15.7 Glucose 145 H Calcium 8.9 Troponin I High Sens 90 H Rhythm Strip Rhythm Strip: Sinus Rhythm Rate: 75 Ectopy: None EKG Initial EKG: Attestation: I personally reviewed and interpreted this EKG as follows: Interpretation: Sinus Rhythm and No Acute Injury Pattern Comments: Nml axis & intervals; nml EKG except for single interpolated PVC Management Discussion w/another healthcare provider: Hospitalist Discharge Plan Dx/Rx/DC Orders Clinical Impression: Unstable angina Disposition Disposition: Acute Care Hospital [facility]
[2024-07-29 06:03] LABS: Absolute Lymphocyte Count 1.07 X10^3/uL (0.83-4.51); Absolute Neutrophil Count 8.5 X10^3/uL (2.0-7.7); Basophil# 0.04 X10^3/uL; Basophil% 0.4 % (0-1); Eosinophil# 0.27 X10^3/uL; Eosinophils% 2.5 % (0-5); Hematocrit 38.4 % (37-47); Hemoglobin 12.1 g/dL (12.0-15.0); Lymphocyte # 1.07 X10^3/ul (0.83-4.51); Lymphocyte % 10.1 % (19-41); Mean Corp Hgb Conc 31.5 g/dL (32-36); Mean Corpuscular Hgb 32.2 pg (27.0-32.0); Mean Corpuscular Volume 102.1 fL (81-99); Mean Platelet Vol. 9.4 fl (6.2-12.0); Monocyte# 0.73 X10^3/uL; Monocyte% 6.9 % (0-10); NRBC Flagged by Analyzer 0 % (0-5); Neutrophil # 8.46 X10^3/uL (2.7-7.7); Neutrophil % 79.6 % (47-70); Platelet Count 189 K/mm3 (150-450); RBC Distribution Width CV 14.7 % (11.6-14.6); RBC Distribution Width SD 54.6 fl (35.1-43.9); Red Blood Count 3.76 M/mm3 (4.2-5.4); White Blood Count 10.6 K/mm3 (4.4-11.0)
[2024-07-29] MEDS: Aspirin 81 MG TAB.CHEW 162 MG PO (06:14)
[2024-07-29] MEDS: Lidocaine 2% Viscous15 ML UDC 15 ML PO (06:14)
[2024-07-29] MEDS: Mag Hydrox/Al Hydrox/Simeth 30 ML UDC PO (06:14)
[2024-07-29 06:23] LABS: Anion Gap 6 (5-15); BUN 19 mg/dL (7-18); BUN/Creat Ratio 15.7 RATIO (10-20); Calcium,Total 8.9 mg/dL (8.5-10.1); Chloride 110 mmol/L (98-107); Creatinine, Serum 1.21 mg/dL (0.55-1.02); EST Glomerular Filtration Rate 46 mL/min (>60); Est Glom Filt Rate - Afr Amer 56 mL/min (>60); Estimated Creatinine Clearance 42.65 ml/min; Glucose 145 mg/dL (74-106); Sodium Level 143 mmol/L (136-145); Troponin-I HS (w/2H Reflex) 90 pg/mL (3.0-54.0)
--- NOTE | 2024-07-29 06:27 | RAD_ITS ---
EXAM: XR CHEST, 1 VIEW CLINICAL INDICATION: chest pain TECHNIQUE: Frontal view of the chest. COMPARISON: No relevant prior studies available. FINDINGS: LUNGS AND PLEURAL SPACES: Bibasilar pulmonary densities may represent pneumonia or atelectasis. No pleural effusion or pneumothorax. HEART: The heart is borderline enlarged. MEDIASTINUM: No mediastinal or hilar mass. BONES/JOINTS: No acute abnormality. RAD/Chest 1 View (Portable) IMPRESSION: Bibasilar pulmonary densities may represent pneumonia or atelectasis. Electronically Signed: Alvarez Deluca MD at 8:51 EST ,
[2024-07-29] MEDS: Nitroglycerin SL (ED/IMG/CATH) 0.4 MG TABLET SL (06:55)
[2024-07-29] MEDS: Enoxaparin 100 MG/ML Syringe 90 MG SC (06:56)
--- NOTE | 2024-07-29 07:19 | HP.PCM.HOS_ITS ---
HPI - General General Date of Admission: 07/29/24 Date of Service: 07/29/24 Chief Complaint: chest pain HPI Narrative SHANNON GOLDBERG, is a 74 F with a PMH as outlined who presents via the ED on 07/29/2024 with a complaint of chest pain. She described it as a pain in her upper back which migrated to her upper chest, and described it as an aching pain and pressure. She denied any shortness of breath, nausea, vomiting or pain radiating to her left arm. Symptoms had been going on for 1 day. Review of systems was otherwise negative. She says she was admitted at [facility] a couple of years ago and was told she had fluid around her lungs, but denies having any pericardiocentesis. Vitals in the ED were BP of 169/79, ND of 66, RR of 16 and temp of 98.1F. She was saturating at 94% on room air. CBC showed hb of 12.1, wbc of 10.6, platelets of 189. Chemistry showed sodium of 143, potassium of 4, Cr of 1.21 and bicarb of 27. Initial troponin was 90. EKG showed some PVCs, but no acute ST changes. She is being admitted to be managed for chest pain, to rule out ACS. [facility] Medical History Hypertension Home Medications ?Medication ?Instructions ?Recorded ?Last Taken ?Type atorvastatin 20 mg tablet 80 mg PO DAILY cholesterol 06/14/17 Unknown History losartan 100 1 tab PO DAILY 06/14/17 Unknown History mg-hydrochlorothiazide 25 mg tablet metoprolol succinate 200 mg 200 mg PO QHS 06/14/17 Unknown History tablet,extended release 24 hr potassium chloride 10 mEq 10 meq PO QHS 06/14/17 Unknown History tablet,extended release(part/cryst) venlafaxine 100 mg tablet 100 mg PO DAILY 06/14/17 Unknown History allopurinol 300 mg tablet 300 mg PO DAILY 02/16/24 Unknown History ezetimibe 10 mg tablet 10 mg PO DAILY 02/16/24 Unknown History furosemide 20 mg tablet 10 mg PO .daily am diuretic 02/16/24 Unknown History hydralazine 50 mg tablet 50 mg PO BID blood pressure 02/16/24 Unknown History meloxicam 7.5 mg tablet 7.5 mg PO DAILY 02/16/24 Unknown History pantoprazole 40 mg tablet,delayed 40 mg PO DAILY 02/16/24 Unknown History release acetaminophen 325 mg tablet 650 mg (2 x 325 mg) PO Q4H PRN PRN 02/17/24 Unknown Rx Pain 1-10 Or Fever #0 tabs dapagliflozin propanediol 5 mg 5 mg PO DAILY 02/17/24 Unknown History tablet (Farxiga) losartan 100 mg tablet 100 mg PO DAILY blood pressure 02/17/24 Unknown History albuterol sulfate 90 mcg/actuation 2 puff inhalation Q4H PRN PRN 07/29/24 Unknown History aerosol inhaler wheezing fluticasone fur. 100 mcg-umeclid 1 ea inhalation DAILY 07/29/24 Unknown History 62.5 mcg-vilant 25 mcg inhalat.powder (Trelegy Ellipta) Allergy/AdvReac Type Severity Reaction Status Date / Time No Known Allergies Allergy Verified 07/29/24 05:43 Family History no significant family his Surgical History S/P appendectomy Social History Smoking Status: Never smoker ROS Constitutional Constitutional: Reports fatigue and malaise; Denies anorexia, chills, fever(s) or weakness Eyes Eyes: Denies change in vision ENT HEENT: Denies dysphagia, headache(s) or sore throat Cardiovascular Cardiovascular: Reports chest pain; Denies dyspnea on exertion, edema, lightheadedness, orthopnea or palpitations Respiratory/Chest Respiratory/Chest: Denies cough, dyspnea, productive cough, shortness of breath at rest or shortness of breath with exertion Gastrointestinal Gastrointestinal: Denies abdominal pain, diarrhea, melena, nausea or vomiting Genitourinary Genitourinary: Denies burning urination or dysuria Musculoskeletal Musculoskeletal: Denies arthralgias or back pain Neurologic Neurologic: Denies confusion, dizziness, focal weakness, headache(s) or numbness Psychiatric Psychiatric: Denies anxiety or depression Endocrine Endocrinology: Denies change in body appearance Vital Signs Vital Signs Vital Signs: 07/29/24 05:43 07/29/24 05:46 07/29/24 05:56 Temperature 98.7 F Temperature Source Oral Pulse Rate 76 Respiratory Rate 18 Respiratory Effort Normal Blood Pressure 188/87 H Blood Pressure Mean 120 Pulse Ox 95 Oxygen Delivery Method Room Air Room Air 07/29/24 06:55 07/29/24 06:59 Temperature 98.1 F Temperature Source Oral Pulse Rate 64 66 Respiratory Rate 16 Respiratory Effort Blood Pressure 171/80 H 169/79 H Blood Pressure Mean 109 Pulse Ox 94 Oxygen Delivery Method Room Air Weight Weight: 207 lb 0.225 oz Body Mass Index (BMI) 39.1 Physical Exam Const alert, oriented x3 and no apparent distress General Appearance: cooperative HEENT normocephalic, head/scalp atraumatic, hearing grossly normal bilaterally and moist oral mucous membranes Mouth: oral and palatal mucosa normal Eyes PERRL, EOMs intact bilaterally and conjunctivae normal Neck no lymphadenopathy and supple Resp normal respiratory effort, no retractions, no use of accessory muscles and clear to auscultation bilaterally Cardio regular rate, regular rhythm, S1 normal heart sound, S2 normal heart sound and no murmurs GI normal to inspection, nondistended, normoactive bowel sounds, soft to palpation and non-tender Extremity normal to inspection, full ROM and no clubbing, cyanosis or edema Neuro oriented x3, CN's II-XII intact bilaterally and moves all extremities Sensorium / Orientation: awake Motor Exam: strength 5/5 throughout Psych affect normal Results Lab / Micro Data 07/29/24 06:00 07/29/24 06:00 Labs: Laboratory Results - last 24 hr 07/29/24 06:00: WBC 10.6, RBC 3.76 L, Hgb 12.1, Hct 38.4, MCV 102.1 H, MCH 32.2 H, MCHC 31.5 L, RDW Std Deviation 54.6 H, RDW Coeff of Giuliano 14.7 H, Plt Count 189, MPV 9.4, Immature Gran % (Auto) 0.500, Neut % (Auto) 79.6 H, Lymph % (Auto) 10.1 L, Bee % (Auto) 6.9, Eos % (Auto) 2.5, Baso % (Auto) 0.4, Absolute Neuts (auto) 8.5 H, Absolute Lymphs (auto) 1.07, Nucleated RBC % 0, Sodium 143, Potassium 4.0, Chloride 110 H, Carbon Dioxide 27.0, Anion Gap 6, BUN 19 H, C reatinine 1.21 H, Estim Creat Clear Calc 42.65, Est GFR (MDRD) Af Amer 56 L, Est GFR (MDRD) Non-Af 46 L, BUN/Creatinine Ratio 15.7, Glucose 145 H, Calcium 8.9, T roponin I High Sens 90 H Rhythm Strip Rhythm Strip: Sinus Rhythm Rate: 75 Ectopy: None Assessment & Plan Assessment/Plan (1) Hypertension: (2) Chest pain: PLAN: Plan #nonstemi * admitted with a complaint of chest pain. EKG showed no acute ST changes, but showed some PVCs * initial troponin is 90. * will cycle troponins * PO aspirin and high intensity statin. Received a dose of therapeutic lovenox in the ED * consult cardiology * 2D echo ordered. * SL nitroglycerin prn * Repeat troponin trended down slightly to 82. I did discuss with Dr. Orta and radiation therapy technician on board. He recommended that patient get a 2D echo tomorrow and to order stress test as well. If echo is abnormal then patient will have a cardiac cath. Will hold off on cardiology consult for now and if need be, to consult cardiology if echo and or stress test abnormal tomorrow * * #Hypertension: on losartan and metoprolol. IV hydralazine prn #Hyperlipidemia: on atorvastatin and ezetemibe #HFrEF: on lasix, metoprolol, lisinopril and farxiga as well as hydralazine DVT prophylaxis: received a dose of therapeutic lovenox in the ED. SCDs Code status: Full code * Patient counseled extensively about different types of CODE STATUS including full code, DNR CCA and DNR CCA. Patient elects to be full code. Total [id number] time 16 minutes. Charges/Coding Visit Charges Inpatient E&M: 00286 Init Hosp L3 Procedures Hospitalists Procedures: 34249 Advncd Care Plan 30 Min
[2024-07-29 08:01] LABS: Reflex Troponin-HS? (from REC) Y
--- NOTE | 2024-07-29 08:41 | EKG12_ITS ---
Test Reason : AM EKG Blood Pressure : */* mmHG Vent. Rate : 60 BPM Atrial Rate : 60 BPM P-R Int : 166 ms QRS Dur : 84 ms QT Int : 404 ms P-R-T Axes : 19 33 43 degrees QTcB Int : 404 ms Normal sinus rhythm Normal ECG When compared with ECG of 29-Jul-2024 08:20, MANUAL COMPARISON REQUIRED DATA IS UNCONFIRMED Confirmed by Kel Guerra ([id number]), sound editor SANA QUIROZ ([id number]) on 07/30/2024 12:20:03 PM Referred By: Confirmed By: Kel Guerra
[2024-07-29 08:55] LABS: Troponin-I HS 82 pg/mL (3.0-54.0)
--- NOTE | 2024-07-29 09:46 | ECHOD_ITS ---
Reason For Study: Chest Pain Procedure This was a 2D Doppler, Color Flow transthoracic echocardiogram. Exam performed in department. Left Ventricle Normal LV size. The estimated ejection fraction is 65 %. No evidence for diastolic dysfunction. No regional wall motion abnormalities noted. Right Ventricle Normal RV size. Normal systolic function. Atria The left and right atria are normal. No doppler evidence for ASD. Mitral Valve There is no mitral valve stenosis. Trivial mitral valve insufficiency. Tricuspid Valve There is no tricuspid stenosis. Unable to estimate RV systolic pressure due to insufficient tricuspid regurgitant envelope. Trivial tricuspid valve insufficiency. Aortic Valve Trisinus/trileaflet aortic valve. There is no aortic stenosis. No aortic valve insufficiency. Pulmonic Valve There is no pulmonic valvular stenosis. No pulmonic valve insufficiency. Great Vessels Normal aortic root. Pericardium/Pleural No pericardial effusion. MMode/2D Measurements & Calculations LVIDd: 4.6 cm IVSd: 1.4 cm Ao root diam: 3.3 cm LVIDs: 2.9 cm LVPWd: 1.2 cm RVDd: 3.2 cm FS: 36.6 % LAV(MOD-bp): 58.2 ml LVAd ap4: 25.3 cm2 SV(MOD-sp4): 44.9 ml LAV(MOD-bp) Indexed: 30.9 ml/m2 LVLd ap4: 6.7 cm SI(MOD-sp4): 23.9 ml/m2 LAV(MOD-sp2): 53.6 ml EDV(MOD-sp4): 78.8 ml LAV(MOD-sp4): 61.1 ml EDV(sp4-el): 81.1 ml LVAs ap4: 15.1 cm2 LVLs ap4: 5.7 cm ESV(MOD-sp4): 33.9 ml ESV(sp4-el): 33.7 ml EF(MOD-sp4): 57.0 % EF(sp4-el): 58.4 % SV(sp4-el): 47.4 ml LA A4 area: 20.0 cm2 LA dimension(2D): 4.4 cm RA A4 area: 14.2 cm2 TAPSE: 1.6 cm Time Measurements MV dec time: 0.18 sec Doppler Measurements & Calculations MV E max duran: 72.5 cm/sec Lat Peak E' Duran: 10.8 cm/sec Med Peak E' Duran: 6.7 cm/sec MV A max duran: 70.6 cm/sec E/E' lat: 6.7 E/E' med: 10.8 MV E/A: 1.0 MV V2 max: 101.0 cm/sec MV P1/2t max duran: 102.0 cm/sec Ao V2 max: 137.9 cm/sec MV max P.1 mmHg MV P1/2t: 76.7 msec Ao max P.6 mmHg MV V2 mean: 55.5 cm/sec Ao V2 mean: 86.0 cm/sec MV mean P.5 mmHg MV dec slope: 389.6 cm/sec2 Ao mean P.5 mmHg MV V2 VTI: 31.6 cm MVA(P1/2t): 2.9 cm2 Ao V2 VTI: 28.7 cm AV (velocity ratio): 0.86 LV V1 max: 102.8 cm/sec PA V2 max: 81.7 cm/sec LV V1 max P.2 mmHg LV V1 mean P.3 mmHg LV V1 mean: 69.8 cm/sec LV V1 VTI: 24.7 cm ECHO/Echo Complete Interpretation Summary The estimated ejection fraction is 65 %. No evidence for diastolic dysfunction. Trivial mitral valve insufficiency. Ordering Physician: Ghazala Dukes Performed By: Jose Montelongo RCS
[2024-07-29] MEDS: Nitroglycerin (INPATIENT USE) 0.4 MG TAB.SUBL SL ×2 (10:29→10:38)
[2024-07-29 12:23] LABS: Troponin-I HS 74 pg/mL (3.0-54.0)
[2024-07-29] MEDS: Acetaminophen 325 MG Tablet 650 MG PO (12:38)
[2024-07-29] MEDS: Ipratropium/Albuterol Sulfate 3 ML AMPUL.NEB INHALATION ×2 (12:50→19:21)
[2024-07-29] MEDS: Budesonide Respules 0.5 MG/2 ML AMPUL.NEB. INHALATION (19:21)
[2024-07-29] MEDS: Metoprolol(XL)Succ 200 MG Tablet PO (20:39)
[2024-07-29] MEDS: hydrALAZINE 50 MG Tablet PO (20:39)
[2024-07-30] VITALS (8 sets, daily range): BP systolic 128–158; BP diastolic 54–73; PULSE 60–84; RESP 16–18; TEMP 36.2–36.7; O2SAT 92–99
--- NOTE | 2024-07-30 05:55 | EKG12_ITS ---
Test Reason : Blood Pressure : */* mmHG Vent. Rate : 67 BPM Atrial Rate : 67 BPM P-R Int : 178 ms QRS Dur : 82 ms QT Int : 402 ms P-R-T Axes : 59 46 53 degrees QTcB Int : 424 ms Sinus rhythm with marked sinus arrhythmia Otherwise normal ECG When compared with ECG of 29-Jul-2024 05:45, MANUAL COMPARISON REQUIRED DATA IS UNCONFIRMED Confirmed by Kel Guerra ([id number]), editorial cartoonist SANA QUIROZ ([id number]) on 07/30/2024 12:20:44 PM Referred By: LEXY Confirmed By: Kel Guerra
[2024-07-30 06:03] LABS: Absolute Neutrophil Count 5.7 X10^3/uL (2.0-7.7); Basophil# 0.04 X10^3/uL; Basophil% 0.5 % (0-1); Eosinophil# 0.18 X10^3/uL; Hematocrit 39.7 % (37-47); Hemoglobin 12.4 g/dL (12.0-15.0); Lymphocyte % 21.6 % (19-41); Mean Corp Hgb Conc 31.2 g/dL (32-36); Mean Corpuscular Hgb 31.2 pg (27.0-32.0); Mean Platelet Vol. 9.4 fl (6.2-12.0); Monocyte# 0.93 X10^3/uL; Monocyte% 10.6 % (0-10); NRBC Flagged by Analyzer 0 % (0-5); Neutrophil # 5.73 X10^3/uL (2.7-7.7); Platelet Count 202 K/mm3 (150-450); RBC Distribution Width CV 14.6 % (11.6-14.6); RBC Distribution Width SD 53.9 fl (35.1-43.9); Red Blood Count 3.97 M/mm3 (4.2-5.4); White Blood Count 8.8 K/mm3 (4.4-11.0)
[2024-07-30] MEDS: Losartan Potassium 100 MG Tablet PO (06:14)
[2024-07-30] MEDS: hydrALAZINE 50 MG Tablet PO (06:14)
[2024-07-30 06:28] LABS: Anion Gap 7 (5-15); BUN 16 mg/dL (7-18); BUN/Creat Ratio 15.2 RATIO (10-20); Calcium,Total 9.5 mg/dL (8.5-10.1); Chloride 110 mmol/L (98-107); Creatinine, Serum 1.05 mg/dL (0.55-1.02); EST Glomerular Filtration Rate 54 mL/min (>60); Est Glom Filt Rate - Afr Amer 66 mL/min (>60); Estimated Creatinine Clearance 48.03 ml/min; Glucose 120 mg/dL (74-106); Potassium 3.8 mmol/L (3.5-5.1); Sodium Level 141 mmol/L (136-145)
[2024-07-30] MEDS: Budesonide Respules 0.5 MG/2 ML AMPUL.NEB. INHALATION (07:11)
[2024-07-30] MEDS: Ipratropium/Albuterol Sulfate 3 ML AMPUL.NEB INHALATION ×2 (07:11→13:28)
[2024-07-30] MEDS: Furosemide 20 MG Tablet 10 MG PO (09:46)
[2024-07-30] MEDS: Pantoprazole Sodium 40 MG Tablet PO (09:46)
[2024-07-30] MEDS: Empagliflozin 10 MG Tablet PO (09:46)
[2024-07-30] MEDS: Potassium Chloride Oral Tablet 10 MEQ PO (09:46)
[2024-07-30] MEDS: Ezetimibe 10 MG Tablet PO (09:46)
[2024-07-30] MEDS: Allopurinol 300 MG Tablet PO (09:47)
[2024-07-30] MEDS: Atorvastatin Calcium 80 MG Tablet PO (09:47)
--- NOTE | 2024-07-30 12:05 | STRESSREP ---
Stress Test Report Date: 07/30/2024 Procedure: Pharmacologic stress nuclear imaging study Indications: Chest pain Consent: Per the patient Procedure: The patient underwent pharmacologic (Regadenoson) evaluation with a peak heart rate of 98 beats per minute (67%predicted maximal heart rate) and a peak blood pressure of 148/70 mmHg. The baseline ECG demonstrated normal sinus rhythm. EKG during lexiscan infusion revealed no significant ischemic changes. EKG post infusion revealed no significant ischemic changes [There were no cardiac dysrhythmias pretest, during pharmacologic infusion, or recovery]. [There was no complaint of chest discomfort during pharmacologic infusion or recovery]. The examination was discontinued secondary to completion of protocol. Impression: 1. Lexiscan stress test test is negative for Lexiscan infusion induced EKG changes of ischemia. 2. Lexiscan stress test test is negative for Lexiscan infusion induced chest pain. 3. Results of the nuclear portion of the test is as below Myocardial perfusion imaging study: Technique: The patient was injected with 14.1 millicuries of technetium 99m Cardiolite and subsequently rest SPECT Cardiolite nuclear imaging was obtained in the horizontal long, vertical long, and short axis views. The patient underwent pharmacologic [Regadenoson 0.4mg] evaluation. Please see above for details. The patient was injected with 44.6 millicuries of technetium 99m Cardiolite and subsequently stress SPECT Cardiolite nuclear imaging was obtained in the horizontal long, vertical long, and short axis views. A gated Cardiolite study at peak stress was obtained. Interpretation: Rest and stress SPECT Cardiolite nuclear imaging status post realignment, normalization, and attenuation correction demonstrate no evidence of significant ischemia or infarction. Gated images reveal no significant regional wall motion abnormalities. The reported LVEF is 63%. Impression: 1. There is no evidence of significant ischemia or infarction. 2. Estimated ejection fraction is 63%. This note was generated with [employer] software. It may contain incorrect words, spelling, and punctuation that were not noted in checking the note before signing.
--- NOTE | 2024-07-30 12:59 | PCM.PN.HOSP ---
Reason for Visit Reason for Visit: Diagnoses Essential (primary) hypertension (07/29/24) Chest pain, unspecified (07/29/24) Subjective Subjective Patient is a 74-year-old lady with multiple comorbidities admitted with chest pain was found to have elevated troponin consistent with non-STEMI admitted to monitored bed for further management Objective Data Objective Data Vital Signs: Vital Signs Temp Pulse Resp BP Pulse Ox O2 Del Method 98.1 F 60 16 144/54 H 93 Room Air 07/30/24 09:41 07/30/24 09:41 07/30/24 09:41 07/30/24 09:41 07/30/24 09:45 07/30/24 09:45 Oxygen Delivery Method Room Air Weight: 90.1 kg Body Mass Index (BMI) 37.5 Lab / Micro Data 07/30/24 05:29 07/30/24 05:29 Labs: Laboratory Results - last 24 hr 07/30/24 05:29: WBC 8.8, RBC 3.97 L, Hgb 12.4, Hct 39.7, MCV 100.0 H, MCH 31.2, MCHC 31.2 L, RDW Std Deviation 53.9 H, RDW Coeff of Giuliano 14.6, Plt Count 202, MPV 9.4, Immature Gran % (Auto) 0.300, Neut % (Auto) 65.0, Lymph % (Auto) 21.6, [place] % (Auto) 10.6 H, Eos % (Auto) 2.0, Baso % (Auto) 0.5, Absolute Neuts (auto) 5.7, Absolute Lymphs (auto) 1.90, Nucleated RBC % 0, Sodium 141, Potassium 3.8, Chloride 110 H, Carbon Dioxide 24.0, Anion Gap 7, BUN 16, Creatinine 1.05 H, Estim Creat Clear Calc 48.03, Est GFR (MDRD) Af Amer 66, Est GFR (MDRD) Non-Af 54 L, BUN/Creatinine Ratio 15.2, Glucose 120 H, Calcium 9.5 Rhythm Strip Rhythm Strip: Sinus Rhythm Rate: 75 Ectopy: None Physical Exam Narrative GENERAL: cooperative HEENT: Atraumatic; normocephalic EYES; Anicteric, Normal Conjunctiva NECK; supple, normal thyroid, RESPIRATORY: Diminished to auscultation CARDIOVASCULAR: Regular S1 S2, GI: soft, normoactive bowel sounds, : No Renal angle tenderness; EXTREMITIES: No edema, no clubbing, MUSCULOSKELETAL: no muscle wasting NEURO: Awake; no lateralizing signs. SKIN: No Rash PSYCH; Flat affect Assessment & Plan Assessment/Plan (1) Hypertension: (2) Chest pain: PLAN: Plan Patient is a 74-year-old lady with multiple comorbidities admitted with chest pain was found to have elevated troponin consistent with non-STEMI admitted to monitored bed for further management 1. Acute non-STEMI ? Patient admitted to monitored bed treatment initiated per protocol with aspirin high-dose statin as well as therapeutic Lovenox with consultation placed to cardiology. Cardiology recommended for patient to undergo a nuclear stress test 2. Hypertension ? Blood pressure controlled, home medications continued with dose adjustment as needed 3. Dyslipidemia ?Patient is on statin therapy as well as Zetia continued at home dose 4. Class II obesity with BMI of 37.5 ? Complicating care weight loss advised 5. Chronic congestive heart failure?unspecified type ? Patient is however on recommended medications including Farxiga, furosemide, metoprolol, lisinopril as well as hydralazine 6. DVT prophylaxis ? On enoxaparin
--- NOTE | 2024-07-30 14:19 | PCM.DC.SUM ---
Providers Date of Admission: 07/29/24 Date of Discharge: 07/30/24 Primary Care Physician: Dr. Denny Roger, DO Reason For Visit: CHEST PAIN Diagnosis Discharge Diagnosis (1) Hypertension: Status: Chronic Code(s): I10 - Essential (primary) hypertension (2) Chest pain: Status: Acute Code(s): R07.9 - Chest pain, unspecified Plan Patient is a 74-year-old lady with multiple comorbidities admitted with chest pain was found to have elevated troponin consistent with non-STEMI admitted to monitored bed for further management 1. Acute non-STEMI ? Patient admitted to monitored bed treatment initiated per protocol with aspirin high-dose statin as well as therapeutic Lovenox with consultation placed to cardiology. Cardiology recommended for patient to undergo a nuclear stress test ? Patient nuclear stress test 1. Lexiscan stress test test is negative for Lexiscan infusion induced EKG changes of ischemia. 2. Lexiscan stress test test is negative for Lexiscan infusion induced chest pain. 3. Results of the nuclear portion of the test is as below Myocardial perfusion imaging study: Interpretation: Rest and stress SPECT Cardiolite nuclear imaging status post realignment, normalization, and attenuation correction demonstrate no evidence of significant ischemia or infarction. Gated images reveal no significant regional wall motion abnormalities. The reported LVEF is 63%. Impression: 1. There is no evidence of significant ischemia or infarction. 2. Estimated ejection fraction is 63%. ?Patient was discharged home with optimization of medical therapy 2. Hypertension ? Blood pressure controlled, home medications continued with dose adjustment as needed 3. Dyslipidemia ?Patient is on statin therapy as well as Zetia continued at home dose 4. Class II obesity with BMI of 37.5 ? Complicating care weight loss advised 5. Chronic congestive heart failure?with preserved ejection fraction ?on recommended medications including Farxiga, furosemide, metoprolol, lisinopril as well as hydralazine 6. DVT prophylaxis ? On enoxaparin Medications at Discharge Home Medications atorvastatin 20 mg tablet 80 mg PO DAILY cholesterol 06/14/17 metoprolol succinate 200 mg tablet,extended release 24 hr 200 mg PO QHS 06/14/17 potassium chloride 10 mEq tablet,extended release(part/cryst) 10 meq PO QHS 06/14/17 venlafaxine 100 mg tablet 100 mg PO DAILY 06/14/17 allopurinol 300 mg tablet 300 mg PO DAILY 02/16/24 ezetimibe 10 mg tablet 10 mg PO DAILY 02/16/24 furosemide 20 mg tablet 10 mg PO .daily am diuretic 02/16/24 hydralazine 50 mg tablet 50 mg PO BID blood pressure 02/16/24 meloxicam 7.5 mg tablet 7.5 mg PO DAILY 02/16/24 pantoprazole 40 mg tablet,delayed release 40 mg PO DAILY 02/16/24 acetaminophen 325 mg tablet 650 mg (2 x 325 mg) PO Q4H PRN PRN Pain 1-10 Or Fever #0 tabs 02/17/24 dapagliflozin propanediol 5 mg tablet (Farxiga) 5 mg PO DAILY 02/17/24 losartan 100 mg tablet 100 mg PO DAILY blood pressure 02/17/24 albuterol sulfate 90 mcg/actuation aerosol inhaler 2 puff inhalation Q4H PRN PRN wheezing 07/29/24 fluticasone fur. 100 mcg-umeclid 62.5 mcg-vilant 25 mcg inhalat.powder (Trelegy Ellipta) 1 ea inhalation DAILY 07/29/24 aspirin 81 mg tablet,delayed release (Ecotrin Low Strength) 81 mg PO DAILY #90 tabs 07/30/24 Hospital Course Summary of Care Provided Minutes Spent on Discharge: 35 Physical Exam Narrative GENERAL: cooperative HEENT: Atraumatic; normocephalic EYES; Anicteric, Normal Conjunctiva NECK; supple, normal thyroid, RESPIRATORY: Diminished to auscultation CARDIOVASCULAR: Regular S1 S2, GI: soft, normoactive bowel sounds, : No Renal angle tenderness; EXTREMITIES: No edema, no clubbing, MUSCULOSKELETAL: no muscle wasting NEURO: Awake; no lateralizing signs. SKIN: No Rash PSYCH; Flat affect Weight / BMI Weight Weight: 90.1 kg Body Mass Index (BMI) 37.5 ABG / Lab / Microbiology Data 07/30/24 05:29 07/30/24 05:29 Laboratory: Laboratory Results - last 24 hr 07/30/24 05:29: WBC 8.8, RBC 3.97 L, Hgb 12.4, Hct 39.7, MCV 100.0 H, MCH 31.2, MCHC 31.2 L, RDW Std Deviation 53.9 H, RDW Coeff of Giuliano 14.6, Plt Count 202, MPV 9.4, Immature Gran % (Auto) 0.300, Neut % (Auto) 65.0, Lymph % (Auto) 21.6, [place] % (Auto) 10.6 H, Eos % (Auto) 2.0, Baso % (Auto) 0.5, Absolute Neuts (auto) 5.7, Absolute Lymphs (auto) 1.90, Nucleated RBC % 0, Sodium 141, Potassium 3.8, Chloride 110 H, Carbon Dioxide 24.0, Anion Gap 7, BUN 16, Creatinine 1.05 H, Estim Creat Clear Calc 48.03, Est GFR (MDRD) Af Amer 66, Est GFR (MDRD) Non-Af 54 L, BUN/Creatinine Ratio 15.2, Glucose 120 H, Calcium 9.5 Radiography Diagnostic Testing: Radiology Impression Echocardiogram 07/29/24 09:46 Interpretation Summary The estimated ejection fraction is 65 %. No evidence for diastolic dysfunction. Trivial mitral valve insufficiency. Ordering Physician: Ghazala Dukes Performed By: Jose Montelongo RCS D/C Instructions Discharge Diet: Low fat / Low cholesterol Discharge Activity: Return to Normal Activity Call your doctor if you observe: Fever of 101 or Higher, Shortness of breath, Fainting spells and Chest pain DC O2, CPAP, BIPAP Needs Additional Home O2 Discharge instructions: No DC home with Oxygen: No Meaningful Use Info Meaningful Use Meaningful Use Diagnoses (Choose all that apply): None applicable AMI/Post PCI/Angioplasty Aspirin given w/in 24hrs of arrival?: Yes ASA at discharge?: Yes Antiplatelet Therapy at Discharge:: Yes Statins at discharge?: Yes Pako/ARB at discharge?: Yes Beta Delvin at discharge?: Yes Documented LVEF (%): 63 Ischemic Stroke Statin Dosing Therapy Reference: STATIN DOSE THERAPY REFERENCE: * Patients > 75 years receive moderate or high dose statin therapy. * Patients 75 years or YOUNGER should receive HIGH intensity statin dose unless contraindicated. You will be required to document reason for non-treatment if statin daily dose does not meet guidelines. HIGH DOSE STATIN THERAPY DAILY Atorvastatin > than or = to 40 mg Rosuvastatin > than or = to 20 mg Amlodipine + Atorvastatin > than or = to 2.5/40 mg Ezetimibe + Simvastatin 10/80 mg Simvastatin 80mg Discharge Plan Admission Admit Date/Time: 07/29/24 07:31 Attending Provider: Alvarado Shipley Primary Care Provider: Denny Roger Consulting Providers: Ghazala Dukes Discharge Orders/Prescriptions Prescriptions: New aspirin [Ecotrin Low Strength] 81 mg tablet,delayed release (DR/EC) 81 mg PO DAILY Qty: 90 0RF Continued atorvastatin 20 MG tablet 80 mg PO DAILY metoprolol succinate 200 MG tablet 200 mg PO QHS Patient Comments: venlafaxine 100 MG tablet 100 mg PO DAILY Patient Comments: TAKE ONE TABLET BY MOUTH EVERY DAY potassium chloride 10 MEQ tablet 10 meq PO QHS Patient Comments: allopurinol 300 mg tablet 300 mg PO DAILY hydralazine 50 mg tablet 50 mg PO BID furosemide 20 mg tablet 10 mg PO .daily am ezetimibe 10 mg tablet 10 mg PO DAILY meloxicam 7.5 mg tablet 7.5 mg PO DAILY pantoprazole 40 mg tablet,delayed release (DR/EC) 40 mg PO DAILY dapagliflozin propanediol [Farxiga] 5 mg tablet 5 mg PO DAILY losartan 100 mg tablet 100 mg PO DAILY acetaminophen 325 mg Tablet 650 mg PO Q4H PRN PRN (Reason: Pain 1-10 Or Fever) Qty: 0 0RF albuterol sulfate 90 mcg/actuation HFA aerosol inhaler 2 puff INHALATION Q4H PRN PRN (Reason: wheezing) Trelegy Ellipta 100-62.5-25 mcg blister with device 1 ea inhalation DAILY Referrals / Follow Up: Denny Roger DO [Primary Care Provider] - Within 1 Week Disposition Disposition (needs filled in before D/C Order can be placed): Home, Self Care Charges/Coding Visit Charges Inpatient E&M: 42993 Disch Hosp >30min
--- NOTE | 2024-07-30 15:19 | CASEMGMT ---
Patient has order for discharge. RN CM in to discuss needs at discharge. Patient denies needs or help at discharge. Patient had no further questions or concerns.
--- NOTE | 2024-07-30 16:01 | CASEMGMT ---
KATI JARQUIN in to complete CHANCE Form. RN BRITTON explained CHANCE form to patient, patient voiced understanding. Patient signed CHANCE Form and filed in chart. Patient provided copy of signed CHANCE Form. Patient had no further questions or concerns.
== END 2024-07-30 14:17 | disposition home or self-care (01) ==
LOC: ED 07:23 → PCU 08:00
PROVIDERS: Admitting Provider Student in an Organized Health Care Education/Training Program; Emergency Provider Emergency Medicine; PCP Family Medicine; Visit Provider Internal Medicine
DX: R07.89 Other chest pain (principal); I11.0 Hypertensive heart disease with heart failure; I50.32 Chronic diastolic (congestive) heart failure; I49.3 Ventricular premature depolarization; Z79.51 Long term (current) use of inhaled steroids; E78.5 Hyperlipidemia, unspecified; Z68.37 Body mass index [BMI] 37.0-37.9, adult; E66.812 Obesity, class 2; Z79.899 Other long term (current) drug therapy
CPT/HCPCS: 36415; 71045; 78452; 80048; 84484; 85025; 93005; 93017; 93306; 94640; 96372; 97161; 99221; 99284; A9500; A4216; G0378; J2785

== ENCOUNTER 2024-08-26 20:05 | Emergency (ER) | payer MEDICARE, BC, SELFPAY ==
[2024-08-26 20:06] VITALS: BP 198/65; PULSE 58; RESP 16; TEMP 36.4; O2SAT 97; BMI 38.9
--- NOTE | 2024-08-26 20:28 | ED.VIS.FALL ---
HPI HPI - Fall History of Present Illness Chief Complaint: Fall Informant: patient and family Occured/Mechanism Occurred: Today Mechanism/Context: Yes same level fall and Yes trip Pain/Injury Pain Location: chest (Left lower ribs) Quality of Pain: Sharp and Stabbing Worsened by: Laying down, certain movements Relieved by: Sitting up Narrative Narrative: Patient presents after a fall that occurred today. Patient tripped and fell. Patient states she landed on her left chest area. The patient states her pain is sharp and stabbing. Patient states it is worse with certain movements and with laying down. Patient states it got better when she sat up. Patient denies any head injury or loss of consciousness. Patient denies any paresthesias or weakness. Patient denies any other injuries. [facility] Medical History (Updated 08/26/24 @ 21:[address] Adelso Romero, DO) Chronic kidney disease Hypertension Home Medications ?Medication ?Instructions ?Recorded ?Last Taken ?Type atorvastatin 20 mg tablet 80 mg PO DAILY cholesterol 06/14/17 Unknown History metoprolol succinate 200 mg 200 mg PO QHS 06/14/17 Unknown History tablet,extended release 24 hr potassium chloride 10 mEq 10 meq PO QHS 06/14/17 Unknown History tablet,extended release(part/cryst) venlafaxine 100 mg tablet 100 mg PO DAILY 06/14/17 Unknown History allopurinol 300 mg tablet 300 mg PO DAILY 02/16/24 Unknown History ezetimibe 10 mg tablet 10 mg PO DAILY 02/16/24 Unknown History furosemide 20 mg tablet 10 mg PO .daily am diuretic 02/16/24 Unknown History hydralazine 50 mg tablet 50 mg PO BID blood pressure 02/16/24 Unknown History meloxicam 7.5 mg tablet 7.5 mg PO DAILY 02/16/24 Unknown History pantoprazole 40 mg tablet,delayed 40 mg PO DAILY 02/16/24 Unknown History release acetaminophen 325 mg tablet 650 mg (2 x 325 mg) PO Q4H PRN PRN 02/17/24 Unknown Rx Pain 1-10 Or Fever #0 tabs dapagliflozin propanediol 5 mg 5 mg PO DAILY 02/17/24 Unknown History tablet (Farxiga) losartan 100 mg tablet 100 mg PO DAILY blood pressure 02/17/24 Unknown History albuterol sulfate 90 mcg/actuation 2 puff inhalation Q4H PRN PRN 07/29/24 Unknown History aerosol inhaler wheezing fluticasone fur. 100 mcg-umeclid 1 ea inhalation DAILY 07/29/24 Unknown History 62.5 mcg-vilant 25 mcg inhalat.powder (Trelegy Ellipta) aspirin 81 mg tablet,delayed 81 mg PO DAILY #90 tabs 07/30/24 Unknown Rx release (Ecotrin Low Strength) oxycodone-acetaminophen 5 mg-325 1 tab PO Q6H PRN PRN Pain 3 days 08/26/24 Unknown Rx mg tablet #12 TABLETS Allergy/AdvReac Type Severity Reaction Status Date / Time No Known Allergies Allergy Verified 08/26/24 20:06 Surgical History S/P appendectomy Social History Smoking Status: Never smoker ROS ROS ED Constitutional Constitutional ED: Denies chills or fever(s) Eyes Eyes: Denies blurry vision or change in vision ENT ENT ED: Denies rhinorrhea or sore throat Cardiovascular Cardiovascular: Denies chest pain or palpitations Respiratory/Chest Respiratory/Chest: Denies cough or dyspnea Gastrointestinal Gastrointestinal: Denies nausea or vomiting Genitourinary Genitourinary ED: Denies dysuria or hematuria Musculoskeletal Musculoskeletal: Denies back pain or neck pain Integumentary Denies abscess or rash Neurologic Neurologic: Denies headache(s) or weakness Allergic/Immunologic Allergic/Immunologic ED: Denies mouth swelling or urticaria EXAM Physical Exam Const Vital Signs: 08/26/24 20:06 08/26/24 20:22 Temperature 97.5 F L Temperature Source Temporal Pulse Rate 58 L Respiratory Rate 16 Respiratory Effort Normal Non-Labored Respiratory Depth Shallow Respiratory Pattern Normal Blood Pressure 198/65 H Blood Pressure Mean 109 Pulse Ox 97 Oxygen Delivery Method Room Air Room Air Positive well nourished and well developed General Appearance ED: well developed and NAD HEENT Reports normocephalic atraumatic Neck full ROM and supple Chest Wall Chest Narrative: There is tenderness of the left lower ribs and costal margin. There is no bony crepitance or step-off. There is no subcutaneous emphysema palpated. Resp normal respiratory effort and clear to auscultation bilaterally Cardio regular rate and regular rhythm GI non-tender and non-distended Palpation: soft Neuro oriented x3, CN's II-XII intact bilaterally, moves all extremities, no focal motor deficits and no sensory deficits noted Demond Coma Scale: document GCS findings Spontaneous Obeys Commands Oriented 15 Sensorium / Orientation: alert Motor Exam: strength 5/5 throughout Psych mental status grossly normal MDM MDM MDM Narrative Medical decision making narrative: Differential diagnosis includes rib fracture, contusion, and pneumothorax. X-rays of the left ribs and chest will be obtained to assess for rib fracture or pneumothorax. Radiography Diagnostic Testing: Clinical Impression(s) from Imaging Studies Ribs w/Chest X-Ray 08/26/24 20:45 IMPRESSION: Acute minimally displaced fracture of the left posterolateral seventh rib. Consider chest CT to assess for other fractures. Electronically Signed: Luis Garcia MD at 21:11 EST , X-rays of the left ribs were obtained. There are 5 views. On my independent interpretation, there is a fracture of the left seventh rib. There is no pneumothorax noted. Radiologist also interpreted the x-rays and agrees. Treatment and Re-Evaluation Narrative: Patient was given a dose of [place] here. Patient had minimal relief with this. Patient was advised of her findings. Patient was given a prescription for a short course of Percocet. Patient was instructed to take 10-15 deep breaths every hour while awake to prevent atelectasis and pneumonia. Patient was instructed to follow-up with her primary care physician in 5 to 7 days. Patient was instructed return if worse in any way. Patient understood and was agreeable with the plan. All questions were answered. Discharge Plan Triage Chief Complaint: Fall ED Provider: Adelso Romero Dx/Rx/DC Orders Clinical Impression: Left rib fracture, Fall, Hypertension Instructions: ED Rib Fracture Prescriptions: New oxycodone-acetaminophen 5-325 mg tablet 1 tab PO Q6H PRN PRN (Reason: Pain) 3 Days Qty: 12 0RF No Action atorvastatin 20 MG tablet 80 mg PO DAILY metoprolol succinate 200 MG tablet 200 mg PO QHS Patient Comments: venlafaxine 100 MG tablet 100 mg PO DAILY Patient Comments: TAKE ONE TABLET BY MOUTH EVERY DAY potassium chloride 10 MEQ tablet 10 meq PO QHS Patient Comments: allopurinol 300 mg tablet 300 mg PO DAILY hydralazine 50 mg tablet 50 mg PO BID furosemide 20 mg tablet 10 mg PO .daily am ezetimibe 10 mg tablet 10 mg PO DAILY meloxicam 7.5 mg tablet 7.5 mg PO DAILY pantoprazole 40 mg tablet,delayed release (DR/EC) 40 mg PO DAILY dapagliflozin propanediol [Farxiga] 5 mg tablet 5 mg PO DAILY losartan 100 mg tablet 100 mg PO DAILY acetaminophen 325 mg Tablet 650 mg PO Q4H PRN PRN (Reason: Pain 1-10 Or Fever) Qty: 0 0RF albuterol sulfate 90 mcg/actuation HFA aerosol inhaler 2 puff INHALATION Q4H PRN PRN (Reason: wheezing) Trelegy Ellipta 100-62.5-25 mcg blister with device 1 ea inhalation DAILY aspirin [Ecotrin Low Strength] 81 mg tablet,delayed release (DR/EC) 81 mg PO DAILY Qty: 90 0RF Primary Care Provider: Denny Roger Referrals: Denny Roger DO [Primary Care Provider] - 5-7 Days Print Language: Colombian Disposition Disposition: Home, Self Care
[2024-08-26] MEDS: HYDROcodone Bitartrate/Apap 5/325 Tablet PO (20:36)
--- NOTE | 2024-08-26 20:45 | RAD_ITS ---
INDICATION: Fall EXAMINATION/TECHNIQUE: X-RAY - XR Ribs Unilateral W/ PA Chest Min 3 Views COMPARISON: No relevant prior comparison study available FINDINGS: SOFT TISSUES: No soft tissue swelling or gas. BONES: Acute minimally displaced fracture of the left posterolateral seventh rib. No sclerotic or destructive changes observed. VISUALIZED LUNGS: Left basilar atelectasis. No pneumothorax. RAD/Ribs Uni Min 3V w/PA Chest IMPRESSION: Acute minimally displaced fracture of the left posterolateral seventh rib. Consider chest CT to assess for other fractures. Electronically Signed: Luis Garcia MD at 21:11 EST ,
[2024-08-26 22:02] VITALS: BP 199/91; PULSE 105; RESP 20; TEMP 36.6; O2SAT 94
--- NOTE | 2024-08-26 22:03 | NURSING ---
pt has BP medications to take at home as scheduled
== END 2024-08-26 22:04 | disposition home or self-care (01) ==
PROVIDERS: Emergency Provider Emergency Medicine; PCP Family Medicine; Visit Provider Emergency Medicine
DX: S22.32XA Fracture of one rib, left side, initial encounter for closed fracture (principal); W01.0XXA Fall on same level from slipping, tripping and stumbling without subsequent striking against object, initial encounter; I12.9 Hypertensive chronic kidney disease with stage 1 through stage 4 chronic kidney disease, or unspecified chronic kidney disease; N18.9 Chronic kidney disease, unspecified; Z79.899 Other long term (current) drug therapy; Z79.82 Long term (current) use of aspirin
CPT/HCPCS: 71101; 99282